=== PATIENT | male | born 1950 | race Caucasian/White ===

== ENCOUNTER 2016-07-30 15:08 | Inpatient (IN) | payer OTHER ==
[~2016-07-30] VITALS: Ht 170.2 cm; Wt 73.5 kg
[2016-07-30] VITALS (34 sets, daily range): BP systolic 51–140; BP diastolic 27–95
--- NOTE | 2016-07-30 15:20 | NUR ---
PT BIBRA FOR SOB, POSSIBLE FLUID OVERLOAD, POSSIBLE [place]. PT IN DISTRESS, ON BIPAP PLACED ON THE FIELD. PT CODED. RT AT BS, DR. CARMONA AT BS. BVM INITIATED. IV ACCESS POULTRY DRESSER. PT MEDICATED ORDERED. PT INTUBATED. OTHER ORDERS CARRIED OUT.
--- NOTE | 2016-07-30 15:20 | NUR ---
LATE ENTRY: RT NOTE PATIENT BROUGHT TO ER ON CPAP. WHILE SETTING UP TO SWITCH PATIENT TO BIPAP PATIENT LOST CONSCIOUSNESS AND I BEGAN TO SET UP FOR INTUBATION WHILE BARBIE (CELESTE) AND DR. CARMONA VENTILATED VIA AMBU BAG. ASSISTED WITH INTUBATION. PATIENT WAS ORALLY INTUBATED WITH 7.5 ETT SECURED AT 25 CM MID LIP LINE. EQUAL CHEST RISE NOTED. BILATERAL B/S NOTED. ONCE PATIENT WAS STABLE HE WAS PLACED ON VENT WITH SETTINGS PER MD ORDER. AMBU BAG AT [facility]. VENT PLUGGED INTO RED OUTLET. SUCTIONED AND LAVAGED TO OBTAIN THIN PINK SECRETIONS. ALRMS VERIFIED AND AUDIBLE. WILL CONTINUE TO MONITOR.
[2016-07-30] MEDS ORDERED: ASPIRIN 300 MG/SUPP.RECT RC ONE ×2 (15:27→15:30)
--- NOTE | 2016-07-30 15:29 | NUR ---
INITIATED CODE STEMI
[2016-07-30] MEDS ORDERED: ETOMIDATE 2 MG/ML VIAL IV ONE (15:30)
[2016-07-30] MEDS ORDERED: SUCCINYLCHOLINE CHLORIDE 20 MG/ML VIAL IV ONE (15:30)
--- NOTE | 2016-07-30 15:30 | NUR ---
SAFETY MEASURES INITIATED. VSS. PT STARTED ON DIPRIVAN. WILL CLOSELY MONITOR.
[2016-07-30] MEDS ORDERED: PROPOFOL 100 ML IV ONE ×2 (15:32→16:00)
[2016-07-30] MEDS ORDERED: IV SET PRIMARY PUMP SET 1 EA INFUS.SET MC ONE ×6 (15:32→21:47)
--- NOTE | 2016-07-30 15:32 | NUR ---
CALLED [facility]ROW[facility]S SPOKE WITH LUAN, FAXED HIM FACESHEET AND 12-LEAD EKG.
--- NOTE | 2016-07-30 15:46 | NUR ---
ST MORROW'S DROP WIRE STRINGER ON THE PHONE WITH DR CARMONA.
[2016-07-30 15:53] LABS: BASOPHILS # (AUTO) 0.5 /CMM (0.0-0.2); BASOPHILS % (AUTO) 3.1 % (0.0-2.0); EOSINOPHILS # (AUTO) 0.4 /CMM (0.0-0.7); EOSINOPHILS % (AUTO) 2.4 % (0.0-6.0); HEMATOCRIT 38 % (39-51); HEMOGLOBIN 12.6 g/dL (13.5-17.5); LYMPHOCYTES # (AUTO) 2.5 /CMM (0.8-4.8); LYMPHOCYTES % (AUTO) 15.4 % (20.0-44.0); MEAN CORPUSCULAR HEMOGLOBIN 31 PG (26.0-33.0); MEAN CORPUSCULAR HGB CONC 33 g/dl (31.0-36.0); MEAN CORPUSCULAR VOLUME 93 fL (80-96); MONOCYTES # (AUTO) 0.7 /CMM (0.1-1.30); MONOCYTES % (AUTO) 4.3 % (2.0-12.0); NEUTROPHILS # (AUTO) 12.3 /CMM (1.8-8.9); NEUTROPHILS % (AUTO) 74.8 % (43.0-81.0); PLATELET COUNT (AUTO) 256 /CMM (150-450); RDW COEFFICIENT OF VARIATION 14.4 (11.5-15.0); RED BLOOD CELL COUNT(AUTO) 4.11 MIL/uL (4.5-6.0); WHITE BLOOD COUNT (AUTO) 16.4 K/uL (4.3-11.0)
[2016-07-30] MEDS ORDERED: PROPOFOL 200 MG/20 ML VIAL IV ONE (16:00)
[2016-07-30] MEDS ORDERED: FUROSEMIDE 40 MG/4 ML VIAL IV ONE (16:00)
--- NOTE | 2016-07-30 16:01 | NUR ---
PATIENT ASSIGNED TO 253
[2016-07-30 16:08] LABS: CALCIUM, SERUM 7.9 mg/dL (8.5-10.1); CARBON DIOXIDE 14 mmol/L (21-32); CHLORIDE 97 mmol/L (98-107); CREATININE 3.5 mg/dL (0.6-1.3); GFR 18 mL/min (>60); GLUCOSE 220 mg/dL (74-106); INR 1.13 (0.87-1.13); POTASSIUM 3.5 mmol/L (3.5-5.1); PROTHROMBIN TIME 11.9 SECS (9.5-12.7); SODIUM SERUM 130 mmol/L (136-145); UREA NITROGEN, BLOOD 67 mg/dL (7-18)
[2016-07-30] MEDS ORDERED: CEFTRIAXONE 1GM BAG (ER ONLY) 50 ML IV ONE (16:13)
[2016-07-30] MEDS ORDERED: FUROSEMIDE 40 MG/4 ML VIAL ONE (16:13)
[2016-07-30 16:20] LABS: ALANINE AMINOTRANSFERASE 65 U/L (12-78); ALBUMIN 2.2 g/dL (3.4-5.0); ALKALINE PHOSPHATASE 122 U/L (46-116); ASPARTATE AMINOTRANSFERASE 130 U/L (15-37); BILIRUBIN,DIRECT 0.1 mg/dL (0.0-0.2); BILIRUBIN,TOTAL 0.4 mg/dL (0.2-1.0); TOTAL PROTEIN, SERUM 7.1 g/dL (6.4-8.2)
[2016-07-30 16:21] LABS: ABG BASE EXCESS -16.3 mmol/L; ABG OXYGEN SATURATION 96.1 % (92.0-98.5); ABG PCO2 29.9 mmHg (35.0-45.0); ABG PH 7.175 (7.350-7.450); ABG PO2 108.8 mmHg (75.0-100.0); ABG TOTAL HEMOGLOBIN 12.3 G/dL (13.5-18.0); AaDO2 574.3 mmHg; COHb 0.4 % (0.5-1.5); MetHb 0.4 % (0.0-1.5); O2Hb 95.3 % (94.0-97.0); PEEP,BG 0 cm H2O; SITE, ABG Right Radial; VT, ABG 550 mL
[2016-07-30 16:27] LABS: TROPONIN I 4.037 ng/mL (0.00-0.056)
[2016-07-30 16:30] LABS: LACTIC ACID 6.8 mmol/L (0.4-2.0)
[2016-07-30] MEDS ORDERED: AZITHROMYCIN 500 MG in IV D5W 250 ML IV ONE (16:30)
[2016-07-30] MEDS ORDERED: CEFTRIAXONE 1 G in IV D5W 50 ML IV ONE (16:30)
--- NOTE | 2016-07-30 16:38 | NUR ---
REPAGED EDGER RUNNER AT [facility]
--- NOTE | 2016-07-30 16:40 | NUR ---
PATIENT ACCEPTED BY DR BUCK STOKES
[2016-07-30 16:43] LABS: B-TYPE NATRIURETIC PEPTIDE 42947 PG/ML (0-125)
--- NOTE | 2016-07-30 16:55 | NUR ---
DR CARMONA ON THE PHONE WITH DR WHITE
--- NOTE | 2016-07-30 16:59 | NUR ---
DR CARMONA ON THE PHONE WITH DR VILLASEÑOR
--- NOTE | 2016-07-30 17:17 | NUR ---
DR. WHITE AT FOR EVAL.
--- NOTE | 2016-07-30 17:17 | NUR ---
REPORT GIVEN TO STEVEN LARIOS FOR ICU ROOM 253
--- NOTE | 2016-07-30 17:43 | NUR ---
RT NOTE: ASSISTED WITH TRANSPORTING PATIENT TO ICU WITH NO PROBLEMS AND PLACED BACK ON VENT WITH PRIOR SETTING. AMBU BAG AT [facility]. VENT PLUGGED INTO RED OUTLET. WILL CONTINUE TO MONITOR.
[2016-07-30] MEDS ORDERED: BUMETANIDE INJ 4 MG in IV D5W 24 ML IV ONE (18:00)
[2016-07-30] MEDS ORDERED: LEVOFLOXACIN 750 MG /D5W 150ML 150 ML IV SCH (18:00)
--- NOTE | 2016-07-30 18:10 | NUR ---
PHARMACY SALES ASSISTANT RECEIVED PATIENT FROM THE ER. 4 PERSON ASSIST TRANSFER TO THE BED. ORALLY INTUBATED ON 85% FIO2. VENT SETTINGS REVIEWED AND VERIFIED. PER ER NURSE PATIENT IS ON 40 MCG DIPRIVAN DUE TO TACHYPNEA. RECTAL TUBE INSERTED DUE TO DIARRHEA. SINUS TACH ON MONITOR. HYPOTENSIVE. URINE OUTPUT MONITORED. INTACT SKIN AT THIS TIME. WILL CONTINUE TO MONITOR AND PROVIDE CARE.
--- NOTE | 2016-07-30 18:14 | NUR ---
HOGSHEAD LINER RECEIVED PATIENT FROM THE OR. PATIENT ORALLY INTUBATED. VENT SETTINGS REVIEWED AND VERIFIED. SINUS TACH ON MONITOR. URINE OUTPUT MONITORED. SEDATED ON DIPRIVAN 40MCG. RECTAL TUBE PLACED DUE TO DIARRHEA. STOOL SAMPLE COLLECTED. RESTRAINTS ARE ON FOR SAFETY. TURNED REPOSITIONED FOR COMFORT AND WOUND PREVENTION. WILL CONTINUE TO MONITOR AND PROVIDE CARE.
[2016-07-30] MEDS ORDERED: HEPARIN SODIUM, PORCINE 5000 UNITS/1 ML VIAL IV ONE ×2 (18:30→19:00)
[2016-07-30] MEDS ORDERED: NITROPRUSSIDE SODIUM 50 MG in IV D5W 250 ML IV PRN (19:00)
[2016-07-30] MEDS ORDERED: SUCCINYLCHOLINE CHLORIDE 20 MG/ML VIAL ONE (19:00)
[2016-07-30] MEDS ORDERED: ETOMIDATE 2 MG/ML VIAL ONE (19:00)
[2016-07-30] MEDS ORDERED: IV NS 0.9% 250 ML IV ONE ×3 (19:13→20:54)
--- NOTE | 2016-07-30 19:35 | NUR ---
APPLE TURNER PATIENT IS HYPOTENSIVE. UNABLE TO REACH FAMILY AT THIS TIME FOR CONSENT. RN INFORMED THE ADVENTURE CHALLENGE INSTRUCTOR AND THE PRIMARY MD. BOTH MDS AGREED THAT PATIENT NEED AN EMERGENCY CONSENT FOR PICC LINE INSERTION DUE TO HEMODYNAMIC INSTABILITY. CONSENT SIGNED BY PRIMARY MD. PICC LINE NURSE ON THE WAY TO THE HOSPITAL.
[2016-07-30] MEDS: HEPARIN INFUSION/D5W 500 ML IV PRN (19:36)
[2016-07-30] MEDS: IPRATROPIUM NEB FS 0.5 MG/2.5 ML AMPUL.NEB NEB PRN (19:46)
[2016-07-30] MEDS: ALBUTEROL FS 2.5 MG/3 ML VIAL.NEB NEB SCH ×2 (19:47→23:09)
[2016-07-30] MEDS ORDERED: FEE PK DOSING 1 MIN EA MC ONE (20:04)
[2016-07-30] MEDS: PANTOPRAZOLE 40 MG VIAL IV SCH (20:08)
[2016-07-30] MEDS: PHENYLEPHRINE 40 MG in IV D5W 250 ML IV PRN ×2 (20:09→23:04)
[2016-07-30] MEDS: PROPOFOL 100 ML IV PRN (20:10)
[2016-07-30] MEDS ORDERED: SECONDARY IV SET 1 EA INFUS.SET MC ONE (20:54)
[2016-07-30] MEDS ORDERED: EPINEPHRINE (1:10,000) SYRINGE 1 MG/10 ML DISP.SYRIN IVP ONE (21:00)
[2016-07-30] MEDS: PIPERACILLIN /TAZOBACTAM 2.25 G in IV D5W 50 ML IV SCH (21:01)
[2016-07-30] MEDS: IV NS 0.9% 250 ML IV PRN (21:05)
[2016-07-30] MEDS ORDERED: IV NS 0.9% 500 ML IV ONE ×2 (21:22→21:30)
[2016-07-30] MEDS: LEVOFLOXACIN 750 MG /D5W 150ML 750 MG in PREMIX 1 EA IV SCH (21:31)
--- NOTE | 2016-07-30 21:31 | NUR ---
received pt from day shift, s/p cardiac arrest, sedated on diprivan at 30mcg, ST, receiving lorena at 300mcg, heparin drip at 1000units, on the vent, intubated, restraints on, f/c low output, rectal tube diarrhea, v/s stable, no pain, pt turned and repositioned.
--- NOTE | 2016-07-30 21:44 | NUR ---
PT RECEIVED INTUBATED WITH 7.5 ETT SECURED AT 24CM AT THE LIP. NO RESP DISTRESS NOTED PT TOLERATING VENT SETTINGS. VENT ALARMS SET AND AUDIBLE. AMBU BAG AT BEDSIDE. VENT PLUGGED INTO RED OUTLET. Addendum: 07/30/16 at 2146 by ROCHELLE MORALES RT Amended: Links added.
[2016-07-30] MEDS: VANCOMYCIN 0.75 GM in IV D5W 250 ML IV SCH (21:57)
[2016-07-30] MEDS ORDERED: PHENYLEPHRINE 10 MG/ML VIAL ONE (22:58)
[2016-07-31] VITALS (106 sets, daily range): BP systolic 82–141; BP diastolic 48–99
--- NOTE | 2016-07-31 00:28 | NUR ---
pt is resting in the bed, sedated on diprivan at 30mcg, receiving lorena at 280mcg and heparin drip at 1000units, v/s stable, no pain, pt turned and repositioned q2hrs.
[2016-07-31] MEDS ORDERED: PHENYLEPHRINE 10 MG/ML VIAL ONE ×2 (01:04→02:43)
[2016-07-31] MEDS: PIPERACILLIN /TAZOBACTAM 2.25 G in IV D5W 50 ML IV SCH ×4 (01:05→20:25)
[2016-07-31] MEDS: PHENYLEPHRINE 40 MG in IV D5W 250 ML IV PRN ×3 (01:13→06:21)
[2016-07-31] MEDS: PROPOFOL 100 ML IV PRN ×4 (01:37→21:06)
--- NOTE | 2016-07-31 04:31 | NUR ---
pt is resting in the bed, sedated on diprivan at 30mcg, receiving lorena at 260mcg, heparin held for one hour and reduced to 800units per protocol (PTT 98), low urine output, v/s stable, no pain, pt cleaned, changed and repostioned q2hrs.
[2016-07-31 04:51] LABS: BASOPHILS % (AUTO) 0.1 % (0.0-2.0); EOSINOPHILS # (AUTO) 0.1 /CMM (0.0-0.7); EOSINOPHILS % (AUTO) 0.4 % (0.0-6.0); HEMATOCRIT 32 % (39-51); HEMOGLOBIN 10.8 g/dL (13.5-17.5); LYMPHOCYTES # (AUTO) 1.1 /CMM (0.8-4.8); LYMPHOCYTES % (AUTO) 4.8 % (20.0-44.0); MEAN CORPUSCULAR HEMOGLOBIN 31 PG (26.0-33.0); MEAN CORPUSCULAR HGB CONC 33 g/dl (31.0-36.0); MEAN CORPUSCULAR VOLUME 93 fL (80-96); MONOCYTES # (AUTO) 0.8 /CMM (0.1-1.30); MONOCYTES % (AUTO) 3.8 % (2.0-12.0); NEUTROPHILS # (AUTO) 20.4 /CMM (1.8-8.9); NEUTROPHILS % (AUTO) 90.9 % (43.0-81.0); PLATELET COUNT (AUTO) 272 /CMM (150-450); RDW COEFFICIENT OF VARIATION 15.6 (11.5-15.0); RED BLOOD CELL COUNT(AUTO) 3.47 MIL/uL (4.5-6.0); WHITE BLOOD COUNT (AUTO) 22.5 K/uL (4.3-11.0)
[2016-07-31 05:08] LABS: ALBUMIN 1.7 g/dL (3.4-5.0); BILIRUBIN,TOTAL 0.3 mg/dL (0.2-1.0); CALCIUM, SERUM 6.7 mg/dL (8.5-10.1); CREATININE 4.5 mg/dL (0.6-1.3); MAGNESIUM 2.4 mg/dL (1.8-2.4); PHOSPHORUS 3.5 mg/dL (2.5-4.9); POTASSIUM 3.4 mmol/L (3.5-5.1); TOTAL PROTEIN, SERUM 5.7 g/dL (6.4-8.2)
[2016-07-31 05:18] LABS: LACTIC ACID 2.9 mmol/L (0.4-2.0); TROPONIN I 13.145 ng/mL (0.00-0.056)
[2016-07-31 05:38] LABS: BAND % (MANUAL) 20 % (0.0-5.0); EOSINOPHILS % (MANUAL) 1 % (0-4); LYMPHOCYTES % (MANUAL) 9 % (16-48); MONOCYTES % (MANUAL) 4 % (0-11.0); NEUTROPHILS % (MANUAL) 66 (42-76); PLATELET ESTIMATE ADEQUATE
--- NOTE | 2016-07-31 08:00 | NUR ---
NETWORK OPERATIONS ANALYST; ASSESSMENT RECEIVED PT VENTED VIA ETT, SEE FLOW SHEET FOR VENT SETTINGS. PT SEDATED ON DIPRIVAN DRIP AT 30MCG/MIN/KG. DECREASED RATE TO 10MCG. PT IS KIMBERLY TO OPEN EYES AND FOLLOW COMMANDS. NOTED LAURA TOES,(MORE ON THE LEFT), PURPLE IN COLOR. UNABLE TO PALPATE PEDAL PULSES. DOPPLER DONE KIMBERLY TO HEAR PULSES TO LAURA POSTERIOR TIBIAL PULSE, STRONGER TO ON THE LEFT THEN RIGHT. PT ON NEOSYNEPRINE DRIP AT 260MCG/MIN, INFUSING INTO RIGHT UPPER PICC LINE. SCHAFER CATH INTACT. DRAINING YELLOW CLEAR URINE. PT ON HEPARIN DRIP PER PROTOCOL. NO S/S OF BLEEDING NOTE. LAURA WRIST RESTRAINS ON FOR PT SAFETY. WILL CONTINUE WITH POC/
[2016-07-31] MEDS: ALBUTEROL FS 2.5 MG/3 ML VIAL.NEB NEB SCH ×3 (08:46→23:18)
[2016-07-31] MEDS: PHENYLEPHRINE 80 MG in IV D5W 250 ML IV PRN ×3 (08:54→17:17)
[2016-07-31] MEDS: ASPIRIN 325 MG TABLET NG SCH (09:00)
[2016-07-31] MEDS ORDERED: ASPIRIN 300 MG/SUPP.RECT RC SCH (09:00)
--- NOTE | 2016-07-31 09:00 | NUR ---
COORDINATOR OF HEALTH SERVICES; PRIMARY DR. JANE AT BEDSIDE UPDATE WAS GIVEN. DISCUSSED REGARDING PT ELEVATED TROPONIN AND ELEVATED BUN AND CREAT. NO NEW ORDERS GIVEN
--- NOTE | 2016-07-31 09:06 | NUR ---
LEARNING OPERATIONS SPECIALIST; HEPARIN aPTT RESULT OF 52. NO CHANGES TO HEPARIN DRIP PER THERAPEUTIC RANGE AND PER PROTOCOL. WILL CONTINUE TO MONITOR CLOSELY FOR ANY S/S OF BLEEDING.
--- NOTE | 2016-07-31 09:30 | NUR ---
TV HOST; GI ABLE TO INSERT NG TUBE TO LEFT NARE. PT TOLERATED WELL. POSITIVE FOR AUSCULTATION AND ASPIRATION. VERIFIED WITH Rubia MCMANUS RN.
[2016-07-31 10:03] LABS: ABG BASE EXCESS -10.4 mmol/L; ABG OXYGEN SATURATION 92.6 % (92.0-98.5); ABG PCO2 20.6 mmHg (35.0-45.0); ABG PH 7.399 (7.350-7.450); ABG PO2 63.6 mmHg (75.0-100.0); ABG TOTAL HEMOGLOBIN 11.2 G/dL (13.5-18.0); AaDO2 197.9 mmHg; COHb 0.3 % (0.5-1.5); MetHb 0.6 % (0.0-1.5); O2Hb 91.8 % (94.0-97.0); PEEP,BG 5 cm H2O; SITE, ABG Right Radial; VT, ABG 600 mL
--- NOTE | 2016-07-31 10:30 | NUR ---
OTR REFRIGERATED CDL TRUCK DRIVER; PULMONARY DR. WHITE AT BEDSIDE UPDATE WAS GIVEN. RESULTS OF ABG REVIEWED. ORDERS TO PLACE PT ON 60% FIO2.
--- NOTE | 2016-07-31 15:36 | NUR ---
SURGEON CHIEF; RENAL DR. THOMAS AT BEDSIDE UPDATE WAS GIVEN. DISCUSSED REGARDING LOW URINE OUT PUT. NO NEW ORDERS GIVEN AT THIS TIME.
[2016-07-31] MEDS: LACTOBACILLUS RHAMNOSUS GG 1 EACH CAP.SPRINK PO SCH (17:09)
[2016-07-31] MEDS ORDERED: FUROSEMIDE 40 MG/4 ML VIAL IV SCH (18:00)
[2016-07-31] MEDS ORDERED: IV SET PRIMARY PUMP SET 1 EA INFUS.SET MC ONE ×2 (18:01→20:52)
[2016-07-31] MEDS: NOREPINEPHRINE 16 MG in IV D5W 500 ML IV PRN (18:06)
[2016-07-31] MEDS: HEPARIN INFUSION/D5W 500 ML IV PRN (18:07)
--- NOTE | 2016-07-31 18:10 | NUR ---
SWIMMING PROFESSOR; CARDIO Yenifer IRIZARRY AT BEDSIDE UPDATE WAS GIVEN DISCUSSED REGARDING ELEVATED TROP. DISCUSSED REGARDING UNABLE TO PALPATE PEDAL PULSES, BUT ABLE TO OBTAIN DOPPLER. NEW ORDERS GIVEN TO WEAN OFF OF TATYANA-SYNEPHRINE AND START LEVOPHED. DISCUSSED ELEVATED HR, BUT STILL WOULD LIKE TO ATTEMPT TO WEAN OFF TATYANA AND JUST KEEP LEVO. WILL TITRATE PRESSORS ACCORDINGLY TO BP
[2016-07-31] MEDS: PANTOPRAZOLE 40 MG VIAL IV SCH (18:48)
[2016-07-31] MEDS ORDERED: POTASSIUM CHLORIDE 10 MEQ/50 ML PREMIXED IVPB FOR PERIPHERAL LINE IV ONE (20:00)
[2016-07-31] MEDS ORDERED: PIPERACILLIN /TAZOBACTAM 2.25 G in IV D5W 50 ML IV SCH (20:00)
--- NOTE | 2016-07-31 20:12 | NUR ---
received pt from day shift, sedated on diprivan at 40mcg, ST, receiving olrena at 160mcg, levo at 10mcg and heparin drip at 800units, on the vent, lungs congested, no edema, f/c low output, MD aware, NG clamped, rectal tube diarrhea, v/s stable, no pain, pt turned and repositioned.
[2016-07-31] MEDS: POTASSIUM CL. PREMIX PERIPHER. 50 ML IV SCH ×2 (20:39→21:27)
[2016-07-31] MEDS ORDERED: IV NS 0.9% 250 ML IV ONE (20:44)
[2016-07-31] MEDS: VANCOMYCIN 0.75 GM in IV D5W 250 ML IV SCH (21:27)
[2016-08-01] VITALS (84 sets, daily range): BP systolic 60–124; BP diastolic 41–77
--- NOTE | 2016-08-01 00:13 | NUR ---
pt is resting in the bed, off of lorena, v/s stable, no pain, pt turned and repositioned q2hrs.
[2016-08-01] MEDS: PROPOFOL 100 ML IV PRN ×3 (00:20→10:01)
[2016-08-01] MEDS: PIPERACILLIN /TAZOBACTAM 2.25 G in IV D5W 50 ML IV SCH ×4 (01:37→20:12)
--- NOTE | 2016-08-01 04:19 | NUR ---
pt is resting in the bed,sedated on Diprivan at 45mcg, no acute distress overnight, ST, fio2 50%, sat well, receiving levo at 25mcg and heparin drip at 800units, good urine output, v/s stable, no pain, pt cleaned, changed and repositioned q2hrs.
[2016-08-01 05:02] LABS: BASOPHILS % (AUTO) 0.1 % (0.0-2.0); EOSINOPHILS # (AUTO) 0.9 /CMM (0.0-0.7); EOSINOPHILS % (AUTO) 3.6 % (0.0-6.0); HEMATOCRIT 34 % (39-51); HEMOGLOBIN 11.5 g/dL (13.5-17.5); LYMPHOCYTES % (AUTO) 8.4 % (20.0-44.0); MEAN CORPUSCULAR HEMOGLOBIN 31 PG (26.0-33.0); MEAN CORPUSCULAR HGB CONC 34 g/dl (31.0-36.0); MEAN CORPUSCULAR VOLUME 91 fL (80-96); NEUTROPHILS # (AUTO) 20.2 /CMM (1.8-8.9); NEUTROPHILS % (AUTO) 83.9 % (43.0-81.0); PLATELET COUNT (AUTO) 302 /CMM (150-450); WHITE BLOOD COUNT (AUTO) 24.1 K/uL (4.3-11.0)
[2016-08-01] MEDS: NOREPINEPHRINE 16 MG in IV D5W 500 ML IV PRN ×2 (05:11→13:32)
[2016-08-01 05:19] LABS: ALBUMIN 1.6 g/dL (3.4-5.0); BILIRUBIN,TOTAL 0.5 mg/dL (0.2-1.0); CALCIUM, SERUM 6.5 mg/dL (8.5-10.1); POTASSIUM 3.6 mmol/L (3.5-5.1); TOTAL PROTEIN, SERUM 5.8 g/dL (6.4-8.2)
[2016-08-01 05:31] LABS: BAND % (MANUAL) 12 % (0.0-5.0); LYMPHOCYTES % (MANUAL) 8 % (16-48); MONOCYTES % (MANUAL) 16 % (0-11.0); NEUTROPHILS % (MANUAL) 64 (42-76); PLATELET ESTIMATE ADEQUATE
--- NOTE | 2016-08-01 07:15 | NUR ---
REFRIGERATION MECHANIC NOTES RECEIVED PATIENT SEDATED , REPOSIVE TO PAIN STIMULI , NOT IN ACUTE DISTRESS , RESPIRATIONS EVEN AND UNLABORED , SPO2 OF 100% VIA MECHANICAL VENTILATOR SETTINGS ORDERED , ETT 7.5 / [address] , ST 105 ON BEDSIDE MONITOR , L NARE NGT IN PLACE VERIFIED VIA AUSCULTATION NOTED WITH GURGLING SOUND AROUND THE STOMACH , FC DRAINING VIA GRAVITY WITH CLEAR YELLOW URINE , FLEXI SEAL IN PLACE DRAINING WITH BROWNISH LIQUID STOOL , [place] PICC LINE WITH DIPRIVAN @ 45MCG/MIN , HEPARIN DRIP @ 800UNITS , LEVOPHED @ 25MCG/MIN INFUSING WELL , IV OF R AC @ 16 AND L WRIST @ 20 PATENT AND INTACT SL , WEAK PULSES @ POSTERIOR TIBIAL AND DORSALIS PEDIS NOTED WITH COOL EXTREMITIES AND CYANOSIS , ALL NEEDS ATTENDED , BED ON LOW AND LOCKED POSITION , SIDE RAILS X2 , CALL LIGHT WITHIN REACH , HOB @ 35 , WILL CONTINUE TO MONITOR
--- NOTE | 2016-08-01 08:00 | NUR ---
PATTERNMAKER APPRENTICE METAL NOTES PATIENT ON SEDATION VACATION @ 0730 , AWAKE , ABLE TO FOLLOWS COMMANDS , AGITATED , HR OF 120'S , NOTED WITH DISCOMFORT , DIPRIVAN @ 45MCG/MIN RESUMED , WILL CONTINUE TO MONITOR
[2016-08-01] MEDS: ALBUTEROL FS 2.5 MG/3 ML VIAL.NEB NEB SCH ×2 (08:04→15:05)
[2016-08-01] MEDS: IPRATROPIUM NEB FS 0.5 MG/2.5 ML AMPUL.NEB NEB PRN (08:04)
--- NOTE | 2016-08-01 08:04 | NUR ---
RT PT RECEIVED ORALLY INTUBATED WITH A 7.5 ETT SECURED AT 24CM AT THE LIP LINE. PT IS CURRENTLY SEDATED AT THIS TIME. PT PLACED ON THE VENT WITH NOTED SETTINGS. VENT ALARMS ARE SET AND AUDIBLE WITH BVM BY BEDSIDE. DIABETES NURSE CUFF PRESSURE NOTED. VENT IS PLUGGED INTO RED OUTLET. SX SMALL THICK YELLOW SECRETIONS. NO RESPIRATORY DISTRESS NOTED AT THIS TIME, WILL CONTINUE TO MONITOR. Addendum: 08/01/16 at 0946 by WILIAN BROWN RT Amended: Links added.
[2016-08-01 08:42] LABS: ABG OXYGEN SATURATION 97.6 % (92.0-98.5); ABG PCO2 20.9 mmHg (35.0-45.0); ABG PH 7.428 (7.350-7.450); ABG PO2 138.6 mmHg (75.0-100.0); ABG TOTAL HEMOGLOBIN 10.9 G/dL (13.5-18.0); AaDO2 194.4 mmHg; COHb 0.3 % (0.5-1.5); MetHb 0.9 % (0.0-1.5); O2Hb 96.4 % (94.0-97.0); PEEP,BG 5 cm H2O; SITE, ABG Right Radial; VT, ABG 600 mL
[2016-08-01] MEDS: ASPIRIN 325 MG TABLET NG SCH (09:05)
[2016-08-01] MEDS: LACTOBACILLUS RHAMNOSUS GG 1 EACH CAP.SPRINK PO SCH ×2 (09:06→16:00)
[2016-08-01] MEDS ORDERED: IV SET PRIMARY PUMP SET 1 EA INFUS.SET MC ONE (09:14)
--- NOTE | 2016-08-01 09:20 | NUR ---
MEDICAL SCREENER NOTES DR JANE AT BEDSIDE , NOTIFIED PT IS OFF SEDATION , NEUROLOGICALLY INTACT , ABLE TO FOLLOWS COMMANDS , ST 105 , ON LEVOPHED @ 25MCG/MIN WITH BP OF 110/55 , NO DISTRESS , URINE OUTPUT OF 1200 FOR 12 HOURS NOTED WITH CLEAR YELLOW URINE , FLEXI SEAL DRAINING VIA GRAVITY WITH BROWNISH LIQUID STOOL , HEPARIN DRIP @ 800 UNITS / HR , DISCUSSED AM LABS , CHEST XRAY , NOTIFIED PT HAS WEAK PULSES @ POSTERIOR TIBIAL AND DORSALIS PEDIS WITH CYANOSIS NOTED , MD AWARE .
--- NOTE | 2016-08-01 09:30 | NUR ---
VIDEO SYSTEMS ENGINEER NOTES NOTIFIED DR JANE REGARDING Occluded right dorsalis pedis artery , AWAITING FOR CALL BACK
[2016-08-01] MEDS ORDERED: MIDAZOLAM HCL 100 MG in IV NS 0.9% 80 ML IV PRN (10:30)
--- NOTE | 2016-08-01 10:45 | NUR ---
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 MD AWARE
--- NOTE | 2016-08-01 10:58 | NUR ---
AUTO BODY MECHANIC APPRENTICE NOTES DR BARBOZA AT BEDSIDE , NOTIFIED PT ON LEVOPHED @ 25MCG/MIN , HEPARIN @ 800U/HR , DIPRIVAN @ 45MCG/HR , TOLERATING CURRENT VENTILATOR SETTINGS WITH SPO2 OF 100% , DISCUSSED AM LABS , CHEST XRAY AND ABG , FIO2 CHANGED TO 40% O2 OF 138.6 , PER MD CHANGE RATE TO AC 16 , AND DISCONTINUE DIPRIVAN AND CHANGE SEDATION TO VERSED . PT ABLE TO FOLLOWS COMMANDS OFF SEDATION , MD AWARE
[2016-08-01] MEDS ORDERED: SET PCA INFUSE SET 1 EA INFUS.SET MC ONE (11:51)
[2016-08-01] MEDS: ALBUMIN 25% 25 GM in PREMIX 1 EA IV SCH ×3 (12:23→22:03)
[2016-08-01] MEDS ORDERED: ACETYLCYSTEINE 10% SOLN 400 MG/4 ML VIAL NEB SCH (13:30)
--- NOTE | 2016-08-01 13:37 | NUR ---
SENIOR CLINICAL SAS PROGRAMMER NOTES VENT SETTINGS CHANGED TO AC 16 , TV 600 , FIO2 30% AND PEEP OF [address] BARBOZA ORDERS
--- NOTE | 2016-08-01 17:26 | NUR ---
SOUND CUTTER NOTES DR JEFFERS AT BEDSIDE , NOTIFIED PT ON LEVOPHED @ 18MGC/MIN WITH BP OF 105/59 , VERSED @ 2MG/HR , HEPARIN @ 800UNITS / HR , ST 103 ON THE MONITIR , AFEBRILE , DISCUSSED LABS , CHEST XRAY , AND Occluded right dorsalis pedis artery , , FOLLOWED UP TROPONIN CYCLE , LAST TROPONIN OF 13.145 YESTERDAY , AWARE
--- NOTE | 2016-08-01 18:00 | NUR ---
HEAVY DUTY TRUCK MECHANIC NOTES PTT OF 195 , WILL HOLD INFUSION FOR 60 MINUTES AND DECREASE RATE BY 200 UNITS/HR , WILL START INFUSING OF HEPARIN @ 600UNITS /HR PER PROTOCOL ,
[2016-08-01] MEDS: LEVOFLOXACIN 750 MG /D5W 150ML 750 MG in PREMIX 1 EA IV SCH (18:03)
--- NOTE | 2016-08-01 18:30 | NUR ---
FURNACE FITTER NOTES SPOKE WITH DR JANE , NOTIFIED PT HAS OCCLUSION RIGHT DORSALIS PEDIS , PER MD CALL DR ARTHUR FOR PHYSICIAN CONSULT, Addendum: 08/01/16 at 1915 by GRACIELA JAY RN DR JANE ORDERED TO DC VANCOMYCIN AND LEVAQUIN IV
--- NOTE | 2016-08-01 19:16 | NUR ---
COMMERCIAL LEASING AGENT NOTES PATIENT STABLE , SEDATED , NOT IN ACUTE DISTRESS , RESPIRATIONS EVEN AND UNLABORED , SPO2 OF 100% VIA MECHANICAL VENTILATOR SETTINGS ORDERED , ETT 7.5 / [address] , ST 104 ON BEDSIDE MONITOR , L NARE NGT IN PLACE , FC DRAINING VIA GRAVITY WITH CLEAR YELLOW URINE , FLEXI SEAL IN PLACE DRAINING WITH BROWNISH LIQUID STOOL , [place] PICC LINE WITH VERSED @ 2MG/HR , HEPARIN DRIP RESTARTED @ 600UNITS , LEVOPHED @ 18MCG/MIN INFUSING WELL , IV OF R AC @ 16 AND L WRIST @ 20 , R FA # 20 PATENT AND INTACT SL , WEAK PULSES @ POSTERIOR TIBIAL AND DORSALIS PEDIS NOTED WITH COOL EXTREMITIES AND CYANOSIS , ALL NEEDS ATTENDED , BED ON LOW AND LOCKED POSITION , SIDE RAILS X2 , CALL LIGHT WITHIN REACH , HOB @ 35 , REPORT GIVEN TO MARIE FOR CONTINUITY OF CARE
--- NOTE | 2016-08-01 19:22 | NUR ---
RN:ICU: PT RECEIVED IN BED ON VENT WITH BILATERAL SOFT WRIST RESTRAINTS IN PLACE FOR PT SAFETY. PT CURRENTLY RECEIVING VERSED AT 2MG/HR. PER DAYSHIFT PMD AWARE OF ARTERIAL OCCLUSION OF RIGHT DORSALIS PEDIS ARTERY AND THAT A MESSAGE HAS BEEN LEFT FOR DR ARTHUR FOR CONSULT. PT RECEIVING LEVOPHED AT 17MCG/MIN WILL TITRATE ACCORDING TO MD ORDER. PTT AT 1800 WAS 195, PER HEPARIN PROTOCOL FOR [facility] HEPARIN STOPPED FOR 60 MINS AND RESUMED AT 200 UNITS/HR LESS THAN PREVIOUS INFUSION RATE. HEPARIN GTT CURRENTLY RUNNING AT 600 UNITS/HR. NO BLEEDING NOTED. ALL IV SITES INTACT. NO ACUTE DISTRESS. WILL RECHECK PTT AT 0000 PER PROTOCOL. VSS. WILL CONTINUE TO MONITOR CLOSELY.
--- NOTE | 2016-08-01 19:37 | NUR ---
PT RECEIVED VIA ETT SECURED AT 24CM AT THE LIP LINE. PT PLACED ON [facility] VENT WITH NOTED SETTINGS CHARTED. VENT ALARMS ARE SET AND AUDIBLE AND AMBU BAG BEDSIDE. INSURANCE CLAIMS SUPERVISOR CUFF PRESSURE NOTED. VENT IS PLUGGED INTO RED OUTLET. SX SMALL THICK YELLOW SECRETIONS. PT IS SEDATED AT THIS TIME. NO RESPIRATORY DISTRESS NOTED AT THIS TIME, WILL CONTINUE TO MONITOR. Addendum: 08/02/16 at 0507 by DON SILVA RT Amended: Links added.
[2016-08-01] MEDS: PANTOPRAZOLE 40 MG VIAL IV SCH (20:12)
[2016-08-01] MEDS: HEPARIN INFUSION/D5W 500 ML IV PRN (20:12)
[2016-08-02] VITALS (70 sets, daily range): BP systolic 76–178; BP diastolic 44–109
[2016-08-02] MEDS: ALBUTEROL FS 2.5 MG/3 ML VIAL.NEB NEB SCH ×4 (00:16→23:34)
--- NOTE | 2016-08-02 01:00 | NUR ---
RN;ICU: PTT 53, PER [facility] PROTOCOL NO CHANGE TO HEPARIN GTT. CONTINUE TO RUN HEPARIN AT 600 UNITS/HR. WILL RECHECK PTT AT 0600. NO BLEEDING NOTED. WILL CONTINUE TO TITRATE LEVOPHED PER PROTOCOL. DURING ADL PT IS ABLE TO RAISE BILATERAL ARMS TOWARDS ETT. PT STILL REQUIRES BILAT SOFT WRIST RESTRAINTS FOR SAFETY. VSS. WILL CONTINUE TO MONITOR CLOSELY.
[2016-08-02] MEDS: PIPERACILLIN /TAZOBACTAM 2.25 G in IV D5W 50 ML IV SCH ×3 (04:14→21:12)
[2016-08-02] MEDS: ALBUMIN 25% 25 GM in PREMIX 1 EA IV SCH (04:14)
[2016-08-02 04:40] LABS: EOSINOPHILS # (AUTO) 0.7 /CMM (0.0-0.7); EOSINOPHILS % (AUTO) 4.7 % (0.0-6.0); HEMATOCRIT 25 % (39-51); HEMOGLOBIN 8.5 g/dL (13.5-17.5); LYMPHOCYTES # (AUTO) 1.5 /CMM (0.8-4.8); LYMPHOCYTES % (AUTO) 9.4 % (20.0-44.0); MEAN CORPUSCULAR HEMOGLOBIN 31 PG (26.0-33.0); MEAN CORPUSCULAR HGB CONC 34 g/dl (31.0-36.0); MEAN CORPUSCULAR VOLUME 91 fL (80-96); MONOCYTES # (AUTO) 0.2 /CMM (0.1-1.30); MONOCYTES % (AUTO) 1.1 % (2.0-12.0); NEUTROPHILS # (AUTO) 13.3 /CMM (1.8-8.9); NEUTROPHILS % (AUTO) 84.8 % (43.0-81.0); PLATELET COUNT (AUTO) 257 /CMM (150-450); RDW COEFFICIENT OF VARIATION 14.6 (11.5-15.0); RED BLOOD CELL COUNT(AUTO) 2.77 MIL/uL (4.5-6.0); WHITE BLOOD COUNT (AUTO) 15.7 K/uL (4.3-11.0)
[2016-08-02 05:06] LABS: CALCIUM, SERUM 6.4 mg/dL (8.5-10.1); CREATININE 7.1 mg/dL (0.6-1.3); POTASSIUM 3.6 mmol/L (3.5-5.1)
[2016-08-02 06:32] LABS: BAND % (MANUAL) 5 % (0.0-5.0); EOSINOPHILS % (MANUAL) 4 % (0-4); LYMPHOCYTES % (MANUAL) 6 % (16-48); MONOCYTES % (MANUAL) 6 % (0-11.0); NEUTROPHILS % (MANUAL) 79 (42-76)
[2016-08-02 06:33] LABS: ANISOCYTOSIS 1+; PLATELET ESTIMATE ADEQUATE
--- NOTE | 2016-08-02 07:15 | NUR ---
FOXING CUTTING MACHINE OPERATOR NOTES RECEIVED PATIENT SEDATED , RESPONSIVE TO PAIN STIMULI , NOT IN ACUTE DISTRESS , RESPIRATIONS EVEN AND UNLABORED , SPO2 OF 100% VIA MECHANICAL VENTILATOR SETTINGS ORDERED , ETT 7.5 / [address] , ST 102 ON BEDSIDE MONITOR , L NARE NGT IN PLACE VERIFIED VIA AUSCULTATION NOTED WITH GURGLING SOUND AROUND THE STOMACH , FC DRAINING VIA GRAVITY WITH CLEAR YELLOW URINE , FLEXI SEAL IN PLACE DRAINING WITH BROWNISH LIQUID STOOL , [place] PICC LINE WITH , HEPARIN DRIP @ 600UNITS INFUSING WELL , LEVOPHED AND VERSED HELD , IV OF R AC @ 16 AND L WRIST @ 20 PATENT AND INTACT SL , PULSES PALPABLE @ POSTERIOR TIBIAL AND DORSALIS PEDIS NOTED VIA DOPPLER WITH WARM TOO TOUCH ,WITH GOOD CAPILLARY REFILL, ALL NEEDS ATTENDED , BED ON LOW AND LOCKED POSITION , SIDE RAILS X2 , CALL LIGHT WITHIN REACH , HOB @ 35 , WILL CONTINUE TO MONITOR
--- NOTE | 2016-08-02 07:16 | NUR ---
TAPE RECORDER MECHANIC NOTES VERSED DRIP HELD FOR SEDATION VACATION ,WILL CONTINUE TO MONITOR
--- NOTE | 2016-08-02 08:17 | NUR ---
DINING HOST NOTES DR JANE AT BEDSIDE , DISCUSSED LABS , CHEST XRAY , PT OFF LEVOPHED SINCE 0600 WITH BP OF 105/55 , VERSED DRIP HELD FOR SEDATION VACATION , PT ABLE TO FOLLOWS COMMANDS , NOTED WITH LETHARGY , TOLERATING CURRENT VENTILATOR SETTINGS ORDERED WITH SPO2 OF 100% WITH NO SIGNS OF DISTRESS , FC DRAINING WITH ADEQUATE URINE OUTPUT , AFEBRILE , ST 103 ON MONITOR , ON HEPARIN DRIP @ 600UNITS PER HOUR , R DORSALIS PEDIS IS WARM TO TOUCH WITH CAPILLARY REFILL OF MORE THAN 5 SECONDS , WITH PALPABLE WEAK PULSES VIA DOPPLER , MD AWARE ,
[2016-08-02] MEDS: ASPIRIN 325 MG TABLET NG SCH (09:22)
[2016-08-02] MEDS: LACTOBACILLUS RHAMNOSUS GG 1 EACH CAP.SPRINK PO SCH ×2 (09:22→16:38)
[2016-08-02] MEDS ORDERED: Z GUARD REMEDY 4 OZ OINT TP PRN (09:30)
--- NOTE | 2016-08-02 11:44 | NUR ---
VENEER JOINTER NOTES DR CHEN AT BEDSIDE , NOTIFIED PT OFF VERSED DRIP , ABLE TO FOLLOWS COMMANDS , LETHARGIC WITH NO SIGNS OF DISTRESS , SPO2 OF 100% VIA MECHANICAL VENTILATOR SETTINGS ORDERED , OFF LEVOPHED SINCE 0600 AM , RHONCHI LUNGS SOUND ALL THROUGHOUT LUNG YAN , FC DRAINING WELL WITH CLEAR YELLOW URINE ADEQUATE IN AMOUNT , AFEBRILE , NO WEANING TRIAL PER MD , CONTINUE CURRENT VENT SETTINGS ORDERED .
--- NOTE | 2016-08-02 12:26 | NUR ---
BUSINESS DEAN NOTES DR HUSAIN AT BEDSIDE , DISCUSSED LABS , CHEST XRAY , PT OFF LEVOPHED SINCE 0600 WITH BP OF 105/55 , VERSED DRIP HELD FOR SEDATION VACATION , PT ABLE TO FOLLOWS COMMANDS , NOTED WITH LETHARGY , TOLERATING CURRENT VENTILATOR SETTINGS ORDERED WITH SPO2 OF 100% WITH NO SIGNS OF DISTRESS , FC DRAINING WITH ADEQUATE URINE OUTPUT , AFEBRILE , ST 103 ON MONITOR , ON HEPARIN DRIP @ 600UNITS PER HOUR , AWARE
[2016-08-02] MEDS: LORAZEPAM INJ 2 MG/ML VIAL IV PRN ×2 (14:02→19:02)
--- NOTE | 2016-08-02 19:01 | NUR ---
AIRCRAFT ORDNANCE SYSTEMS MECHANIC NOTES PT HR OF 130 , WITH SPO2 OF 95% VIA MECHANICAL VENT SETTINGS ORDERED , RR OF 35 , TACHYPNEIC , BP OF 166/96 ,ATIVAN 0.5MG GIVEN PRN ORDERED , WILL CONTINUE TO MONITOR
--- NOTE | 2016-08-02 20:01 | NUR ---
PRESS SUPERVISOR. IITIAL ASSESSMENT. RECEIVED THE PT REST ON THE BED. ORALLY INTUBATED, LETHARGIC. ETT 7.5CMS, LIP 25CM,AC 16,TV 600,FIO2 30%, PEEP5. SAT 98%. NO ACUTE DISTRESS NOTED. CONSUMER MARKETING ANALYST SHOWING S TACH. IV RT UPPER ARM PICC LINE HEPARIN 600UNIT HOB ELEVATED. LT NARE NGT. CLAMPED. NPO. FC PATENT. LAURA SOFT WRIST RESTRAINT CHECKED AND RELEASED. NO INJURY OR REDNESS NOTED. TURN AND REPOSITION Q2H. WILL CONTINUE TO MONITOR VITALS.
[2016-08-02] MEDS ORDERED: IV SET PRIMARY PUMP SET 1 EA INFUS.SET MC ONE (20:13)
[2016-08-02] MEDS: PANTOPRAZOLE 40 MG VIAL IV SCH (20:19)
[2016-08-02] MEDS: NOREPINEPHRINE 16 MG in IV D5W 500 ML IV PRN (20:35)
[2016-08-02] MEDS ORDERED: VANCOMYCIN 0.75 GM in IV D5W 250 ML IV SCH (21:00)
[2016-08-02] MEDS ORDERED: HEPARIN INFUSION/D5W 500 ML IV ONE (22:53)
[2016-08-02] MEDS: HEPARIN INFUSION/D5W 500 ML IV PRN (23:17)
[2016-08-03] VITALS (44 sets, daily range): BP systolic 85–130; BP diastolic 45–72
[2016-08-03] MEDS: LORAZEPAM INJ 2 MG/ML VIAL IV PRN ×2 (01:45→07:30)
[2016-08-03] MEDS: IV NS 0.9% 250 ML IV PRN (01:46)
--- NOTE | 2016-08-03 02:21 | NUR ---
HOUSEKEEPING/LAUNDRY SUPERVISOR. AM CARE. ORAL CARE,BED BATH GIVEN. LINEN CHANGED. REMAINING SAME VENT SETTING TOLERATED SAT 98%. MANAGER BUSINESS SHOWING S TACH. IV RT UPPER ARM PICC LINE. IV LEVOPHED 5MCG/MIN, HEPARIN 600UNITS /H LAURA SOFT WRIST RESTRAINT, CHECKED AND RELEASED. NO INJURY OR REDNESS NOTED. FC PATENT. URINE DRAINING. AFEBRILE. WILL CONTINUE TO MONITOR VITALS.
[2016-08-03] MEDS: PIPERACILLIN /TAZOBACTAM 2.25 G in IV D5W 50 ML IV SCH ×4 (04:25→22:19)
[2016-08-03 05:01] LABS: BASOPHILS # (AUTO) 0.1 /CMM (0.0-0.2); BASOPHILS % (AUTO) 0.4 % (0.0-2.0); EOSINOPHILS # (AUTO) 0.6 /CMM (0.0-0.7); EOSINOPHILS % (AUTO) 3.7 % (0.0-6.0); HEMATOCRIT 28 % (39-51); HEMOGLOBIN 9.8 g/dL (13.5-17.5); LYMPHOCYTES # (AUTO) 1.3 /CMM (0.8-4.8); LYMPHOCYTES % (AUTO) 8.7 % (20.0-44.0); MEAN CORPUSCULAR HEMOGLOBIN 31 PG (26.0-33.0); MEAN CORPUSCULAR HGB CONC 35 g/dl (31.0-36.0); MEAN CORPUSCULAR VOLUME 89 fL (80-96); MONOCYTES % (AUTO) 6.6 % (2.0-12.0); NEUTROPHILS # (AUTO) 12.5 /CMM (1.8-8.9); NEUTROPHILS % (AUTO) 80.6 % (43.0-81.0); PLATELET COUNT (AUTO) 293 /CMM (150-450); RDW COEFFICIENT OF VARIATION 14.8 (11.5-15.0); RED BLOOD CELL COUNT(AUTO) 3.17 MIL/uL (4.5-6.0); WHITE BLOOD COUNT (AUTO) 15.5 K/uL (4.3-11.0)
[2016-08-03 05:16] LABS: CALCIUM, SERUM 6.8 mg/dL (8.5-10.1); POTASSIUM 3.5 mmol/L (3.5-5.1)
[2016-08-03 05:26] LABS: CREATININE 7.5 mg/dL (0.6-1.3)
[2016-08-03] MEDS: ALBUTEROL FS 2.5 MG/3 ML VIAL.NEB NEB SCH ×2 (07:09→15:30)
[2016-08-03] MEDS: LACTOBACILLUS RHAMNOSUS GG 1 EACH CAP.SPRINK PO SCH ×2 (08:30→16:33)
[2016-08-03] MEDS: ASPIRIN 325 MG TABLET NG SCH (08:30)
--- NOTE | 2016-08-03 11:10 | NUR ---
SOIL CHECKER.DR GRAY SEEN THE PT HEPARIN DRIP D/C.
--- NOTE | 2016-08-03 11:13 | NUR ---
ENGINEERING CLERK. DR JANE SEEN THE PT BICARB DRIP STARTED.
[2016-08-03] MEDS ORDERED: IV SET PRIMARY PUMP SET 1 EA INFUS.SET MC ONE ×2 (12:04→19:55)
[2016-08-03] MEDS: Sodium Bicarbonate 100 MEQ in IV 1/2NS 1000 ML 1,000 ML IV PRN ×2 (12:11→22:19)
--- NOTE | 2016-08-03 12:52 | NUR ---
GENERAL HARDWARE SALESPERSON. PT ON SIMV MODE. AT 1130. WILL CONTINUE TO MONITOR VITALS.LEVOPHED HELD. BICARB DRIP 100ML/H STARTED.
[2016-08-03 13:14] LABS: ABG BASE EXCESS -8.8 mmol/L; ABG OXYGEN SATURATION 96.8 % (92.0-98.5); ABG PH 7.477 (7.350-7.450); ABG PO2 109.1 mmHg (75.0-100.0); ABG TOTAL HEMOGLOBIN 9.5 G/dL (13.5-18.0); AaDO2 83.7 mmHg; COHb 0.2 % (0.5-1.5); MetHb 0.7 % (0.0-1.5); O2Hb 95.9 % (94.0-97.0); SITE, ABG Right Radial
--- NOTE | 2016-08-03 13:36 | NUR ---
RT PER DR YAO PATIENT WAS WEANED AND EXTUBATED. PLACED ON 2L N/C SANDRA WELL.
--- NOTE | 2016-08-03 15:00 | NUR ---
CODE STATUS. PT EXTUBATED, FOLLOWS COMMANDS, WHISPERING WORDS THAT ARE CLEAR, WRITING NOTES ALBEIT BARELY LEGIBLE HANDWRITING. D/W PT CODE STATUS, RE INTUBATION STATUS AND POSSIBILITY OF HEMODIALYSIS IF NECESSARY. WITNESSED BY DR YAO AND RN MARYJO Gray PT WANTS FULL CODE, REINTUBATION AND HD IF NECESSARY LONG "I AM NOT BRAIN ". MALLIKA ARAIZA AND MAXIMILIAN AWARE AND AGREE TO SAME
--- NOTE | 2016-08-03 15:54 | NUR ---
MAST MAKER. PT EXTUBATED. AROUND 1320. AWAKE, ALERT, FOLLOW COMMANDS. NPO, PT IS LETHARGIC. LT NARE NGT INTACT.CLAMPED./ VP OUTCOMES SHOWING S TACH. OXYGEN 2L VIA NASAL CANNULA. SAT 99%. NO ACUTE DISTRESS NOTED. RESTRAINT OFF. FC PATENT. URINE DRAINING. AFEBRILE.PT CODE STATUS CHANGED. NOW FULL CODE. LEVOPHED OFF FROM 1200. BLOOD PRESSURE STABLE. TURN AND REPOSITION Q2H. WILL CONTINUE TO MONITOR VITALS.
[2016-08-03] MEDS: PANTOPRAZOLE 40 MG VIAL IV SCH (19:32)
[2016-08-03] MEDS ORDERED: IV 1/2NS 1000 ML 1,000 ML IV ONE (19:55)
[2016-08-03] MEDS ORDERED: SODIUM BICARBONATE SYR 50 MEQ/50 ML DISP.SYRIN ONE ×3 (19:55→22:29)
--- NOTE | 2016-08-03 20:00 | NUR ---
RN INITIAL NOTES RECEIVED PT AWAKE ON BED, DROWSY BUT A/O X3. ON 2L NASAL CANNULA, SATURATING WELL, NO S/S OF RESP DISTRESS. CURRENTLY ST ON THE MONITOR, HR 110-120'S. LEFT NGT IS CLAMPED AND INTACT. SCHAFER CATH INTACT. RIGHT UPPER ARM PICC LINE, RIGHT FOREARM 20G, LEFT FOREARM 20 WITH NABICARB 100MEQ IN 1/2NS @ 100MLS/HR, FLUSHED AND PATENT, NO S/S OF INFILTRATION/INFECTION, DRESSINGS CDI. BED LOW AND LOCKED, SIDERAILS UP, CALL LIGHT WITHIN REACH. WILL MONITOR
[2016-08-03] MEDS: HEPARIN SODIUM, PORCINE 5000 UNITS/1 ML VIAL SQ SCH (20:54)
[2016-08-03] MEDS ORDERED: MUPIROCIN OINT 2% 22 GM TUBE ONE (21:03)
[2016-08-04] VITALS (68 sets, daily range): BP systolic 63–192; BP diastolic 40–113
[2016-08-04] MEDS: ALBUTEROL FS 2.5 MG/3 ML VIAL.NEB NEB SCH ×4 (00:15→22:56)
[2016-08-04] MEDS: IPRATROPIUM NEB FS 0.5 MG/2.5 ML AMPUL.NEB NEB PRN ×2 (00:34→07:27)
[2016-08-04] MEDS ORDERED: IV SET PRIMARY PUMP SET 1 EA INFUS.SET MC ONE ×5 (01:42→17:24)
[2016-08-04] MEDS: NOREPINEPHRINE 16 MG in IV D5W 500 ML IV PRN ×2 (02:00→15:47)
[2016-08-04 04:42] LABS: BASOPHILS % (AUTO) 0.2 % (0.0-2.0); EOSINOPHILS # (AUTO) 0.2 /CMM (0.0-0.7); EOSINOPHILS % (AUTO) 1.3 % (0.0-6.0); HEMATOCRIT 25 % (39-51); HEMOGLOBIN 8.7 g/dL (13.5-17.5); LYMPHOCYTES # (AUTO) 1.1 /CMM (0.8-4.8); LYMPHOCYTES % (AUTO) 7.9 % (20.0-44.0); MEAN CORPUSCULAR HEMOGLOBIN 31 PG (26.0-33.0); MEAN CORPUSCULAR HGB CONC 35 g/dl (31.0-36.0); MEAN CORPUSCULAR VOLUME 88 fL (80-96); MONOCYTES # (AUTO) 0.9 /CMM (0.1-1.30); MONOCYTES % (AUTO) 6.7 % (2.0-12.0); NEUTROPHILS # (AUTO) 11.4 /CMM (1.8-8.9); NEUTROPHILS % (AUTO) 83.9 % (43.0-81.0); PLATELET COUNT (AUTO) 293 /CMM (150-450); RDW COEFFICIENT OF VARIATION 14.4 (11.5-15.0); RED BLOOD CELL COUNT(AUTO) 2.81 MIL/uL (4.5-6.0); WHITE BLOOD COUNT (AUTO) 13.6 K/uL (4.3-11.0)
[2016-08-04] MEDS: PIPERACILLIN /TAZOBACTAM 2.25 G in IV D5W 50 ML IV SCH ×4 (04:54→22:09)
[2016-08-04 04:59] LABS: CREATININE 6.5 mg/dL (0.6-1.3); MAGNESIUM 1.9 mg/dL (1.8-2.4)
[2016-08-04 05:20] LABS: POTASSIUM 2.7 mmol/L (3.5-5.1)
[2016-08-04 05:21] LABS: CALCIUM, SERUM 5.9 mg/dL (8.5-10.1)
--- NOTE | 2016-08-04 05:30 | NUR ---
RN NOTES CALLED DR JANE FOR CRITICAL LAB VALUES: K 2.7, BUN 86, CREA 6.5, CA 5.9. DR JANE ORDERED 40MEQ POTASSIUM PO Q2H X2
[2016-08-04] MEDS ORDERED: POTASSIUM CHLORIDE 20 MEQ TAB.PRT.SR PO ONE ×3 (05:35→08:00)
--- NOTE | 2016-08-04 06:30 | NUR ---
RN CLOSING NOTES PT REMAINS STABLE OF THE MOMENT. ALL DUE MEDS GIVEN, AM CARE PROVIDED. WILL ENDORSE TO AM RN
--- NOTE | 2016-08-04 07:20 | NUR ---
RT PATIENT SEEN IN RESP DISTRESS WITH HR OF 140, RR 40, SPO2 83% ON 5L N/C. PER MD ORDER PATIENT PLACED ON BIPAP AND RESP TX GIVEN. ALARMS CHECKED + AUDIBLE. CANU BAG AT HOB Addendum: 08/04/16 at 0801 by RICH SHAFER RT Amended: Links added.
--- NOTE | 2016-08-04 07:30 | NUR ---
ICU/RN: PT RECEIVED ON BIPAP, RT AT THE BEDSIDE. PER RT REPORT, PT RECEIVED WITH RESP DISTRESS, PLACED ON BIPAP FOR RESP SUPPORT. RR IN 30'S, WITH IMPROVED HR FROM 140'S TO 120'S. PT A&OX4, DENIES PAIN AND DISCOMFORT. MILD PITTING EDEMA NOTED ON R DORSAL FOOT. CIRCULATION, PULSES AND SENSATION PRESENT ON UPPER AND LOWER EXTREMITIES. NGT + PLACEMENT VIA AUSCULTATION. [place] ML PATENT AND INTACT, WITH BICARB DRIP INFUSING AT ORDERED RATE. FC DRAINING WELL TO GRAVITY. CALL LIGHT WITHIN REACH. WILL CONT TO MONITOR PT.
[2016-08-04] MEDS ORDERED: Calcium Gluconate 1GM/10ML 9.3 MEQ in IV D5W 250 ML IV ONE (09:00)
[2016-08-04] MEDS: HEPARIN SODIUM, PORCINE 5000 UNITS/1 ML VIAL SQ SCH ×2 (09:14→20:11)
[2016-08-04] MEDS: LACTOBACILLUS RHAMNOSUS GG 1 EACH CAP.SPRINK PO SCH ×2 (09:14→16:06)
[2016-08-04] MEDS: ASPIRIN 325 MG TABLET NG SCH (09:14)
--- NOTE | 2016-08-04 09:37 | NUR ---
ICU/RN: DR JANE AT THE BEDSIDE; UPDATED ON PT RESPIRATORY STATUS; WITH SOB AND LABORED BREATHING ON NC OVERNIGHT AND REQUIRED PLACEMENT ON BIPAP FOR RESP SUPPORT. ABN LABS DW . INFORMED OF PT WISH TO BE FULL CODE YESTERDAY, THIS AM, PT STATES "JUST FOLLOW WHATEVER IS ON MY ADVANCED DIRECTIVE. THE DIRECTIONS THERE ARE CLEAR DAY." INFORMED PT THAT DIRECTIVE STATES A NO CODE. PT THEN STATES "NO. IT'S OK FOR ME TO BE REINTUBATED, CPR IS OK. I WANT EVERYTHING TO BE DONE UNLESS IM BRAIN . I NEED TO MAKE CHANGES TO MY ADVANCE DIRECTIVE." PER DR JANE "KEEP FULL CODE."
[2016-08-04 10:03] LABS: ABG BASE EXCESS -4.9 mmol/L; ABG OXYGEN SATURATION 95.8 % (92.0-98.5); ABG PCO2 22.8 mmHg (35.0-45.0); ABG PH 7.493 (7.350-7.450); ABG PO2 90.6 mmHg (75.0-100.0); ABG TOTAL HEMOGLOBIN 9.7 G/dL (13.5-18.0); AaDO2 240.3 mmHg; COHb 0.1 % (0.5-1.5); MetHb 0.4 % (0.0-1.5); O2Hb 95.3 % (94.0-97.0); SITE, ABG Right Radial
--- NOTE | 2016-08-04 10:27 | NUR ---
POST ABG RESULTS PATIENT REMOVED OFF BIPAP AND PLACED ON 12L SIMPLE MASK. RN AWARE
--- NOTE | 2016-08-04 11:04 | NUR ---
PATIENT UNABLE TO SANDRA BEING OFF BIPAP DUE TO INCREASE WORK OF BREATHING INCREASE HR AND DESATURATION.. PLACED BACK ON BIPAP Addendum: 08/04/16 at 1105 by RICH SHAFER RT Amended: Links added.
--- NOTE | 2016-08-04 12:58 | NUR ---
ICU/RN: PT CONTINUES TO HAVE INCREASED WORK OF BREATHING, MILD CONFUSION, ST 130-140'S, RR 38-45'S, DIAPHORESIS, RESTLESSNESS ON BIPAP. HOB ELEVATED, PLACED ON 100% FIO2 WITH SATURATION IN MID TO LOW 80'S. DR WHITE NOTIFIED WITH ORDERS FOR INTUBATION. PT AGREEABLE TO REINTUBATION; EDUCATED. NAIL POLISH BRUSH MACHINE FEEDER NOTIFIED.
--- NOTE | 2016-08-04 13:20 | NUR ---
ICU/RN: PT REINTUBATED BY DR RODRIGUEZ WT ETT 7.5 AT 25 LIP LINE. PT TOLERATED WELL. ORDERS FOR CXR NOTED, CARRIED OUT. DR JANE, DR WHITE AND DR SAN UPDATED ON PT STATUS.
[2016-08-04] MEDS ORDERED: SUCCINYLCHOLINE CHLORIDE 20 MG/ML VIAL IV ONE (13:30)
[2016-08-04] MEDS ORDERED: ETOMIDATE 2 MG/ML VIAL IV ONE (13:30)
--- NOTE | 2016-08-04 13:43 | NUR ---
RT PER DR WHITE PATIENT RE-INTUBATED FOR INCREASED WORK OF BREATHING, INCREASED HR, AND DESATURATION. PATIENT INTUBATED BY DR RODRIGUEZ WITH A 7.5 ETT SECURED AT THE 25CM MID LIP VIA ANCHOR VAST. POSITIVE CO2 DETECTOR COLOR CHANGE. BILAT BREATH SOUNDS HEARD. BILAT CHEST RISE NOTED. C+S SAMPLE TAKEN AND SENT TO LAB. SUCTIONED WITH SMALL AMT OF BLOOD TINGED SEMITHICK SECRETIONS. B/S DIM WHEEZING. PLACED ON [facility] VENT WITH PREVIOUS ORDERED SETTINGS. VENT ALARMS CHECKED + AUDIBLE. AMBU BAG AT HOB. Addendum: 08/04/16 at 1347 by RICH SHAFER RT Amended: Links added.
[2016-08-04] MEDS: PROPOFOL 100 ML IV PRN ×3 (15:23→20:33)
[2016-08-04] MEDS: IV NS 0.9% 250 ML IV PRN (15:49)
[2016-08-04 15:55] LABS: ABG BASE EXCESS -5.3 mmol/L; ABG OXYGEN SATURATION 98.1 % (92.0-98.5); ABG PCO2 25.7 mmHg (35.0-45.0); ABG PH 7.452 (7.350-7.450); ABG PO2 187.9 mmHg (75.0-100.0); ABG TOTAL HEMOGLOBIN 9.7 G/dL (13.5-18.0); AaDO2 355.5 mmHg; MetHb 0.3 % (0.0-1.5); O2Hb 97.8 % (94.0-97.0); SITE, ABG Right Radial
[2016-08-04] MEDS ORDERED: BUMETANIDE INJ 4 MG in IV D5W 24 ML IV ONE (17:00)
--- NOTE | 2016-08-04 17:30 | NUR ---
ICU/RN: DR JEFFERS AT BEDSIDE FOR CARDIOLOGY F/U; UPDATED ON PT STATUS, REINTUBATED ON PRESSORS. WITH PALPABLE PULSES ON BILAT DP; WARMTH, CIRCULATION PRESENT S/P HEPARIN GTT. NO NEW ORDERS.
--- NOTE | 2016-08-04 19:05 | NUR ---
ICU/RN: PT IN BED, COMFORTABLE, TOLERATING CURRENT SETTINGS. LEVOPHED TITRATED TO PARAMATERS, SEDATED ON 45MCG/MIN OF DIPRIVAN, ON BILAT SOFT WRIST RESTRAINTS. FC DRAINING WELL TO GRAVITY. CARE ENDORSED TO PM RN FOR ZENY.
[2016-08-04] MEDS: PANTOPRAZOLE 40 MG VIAL IV SCH (19:17)
--- NOTE | 2016-08-04 19:30 | NUR ---
RN INITIAL NOTES RECEIVED PT SEDATED ON BED WITH DIPRIVAN DRIP @ 45MCG/KG/MIN. INTUBATED AND ON VENT, AC 16, TV 550, 40% FIO2, PEEP 5, SATURATING WELL, NO S/S OF RESP DISTRESS. CURRENTLY SR ON THE MONITOR, HR 90'S. ON LEVO DRIP @ 16MCG/MIN TO KEEP SBP > 90. LEFT NARE NGT CLAMPED AND INTACT. SCHAFER CATH NOTED. RIGHT UPPER ARM PICC, RIGHT FOREARM 20, LEFT FOREARM 20G WITH BUMEX DRIP, FLUSHED AND PATENT, NO S/S OF INFILTRATION/INFECTION, DRESSINGS CDI. BED LOW AND LOCKED, SIDERAILS UP. BILATERAL SOFT WRIST RESTRAINTS INTACT. WILL MONITOR
--- NOTE | 2016-08-04 22:00 | NUR ---
RN NOTES EDGAR KOEHLER ARRIVED IN THE UNIT TO VISIT THE PATIENT AND ASK SOME QUESTIONS. SHE TOOK THE PATIENT'S WALLET, CELLPHONE, AND EYEGLASSES HOME. ITEMS WERE TAKEN OUT OF THE ICU SAFE. SHE SIGNED THE BELONGINGS LIST PAPER AND CASTINGS DRAFTER WAS MADE AWARE WELL
[2016-08-05] VITALS (104 sets, daily range): BP systolic 88–126; BP diastolic 52–70
[2016-08-05] MEDS ORDERED: IV SET PRIMARY PUMP SET 1 EA INFUS.SET MC ONE ×3 (01:14→17:17)
[2016-08-05] MEDS: PROPOFOL 100 ML IV PRN ×5 (01:20→20:31)
[2016-08-05] MEDS: PIPERACILLIN /TAZOBACTAM 2.25 G in IV D5W 50 ML IV SCH ×4 (04:20→23:31)
[2016-08-05 05:15] LABS: BASOPHILS % (AUTO) 0.2 % (0.0-2.0); EOSINOPHILS # (AUTO) 0.8 /CMM (0.0-0.7); EOSINOPHILS % (AUTO) 3.9 % (0.0-6.0); HEMATOCRIT 26 % (39-51); LYMPHOCYTES # (AUTO) 1.9 /CMM (0.8-4.8); LYMPHOCYTES % (AUTO) 9.4 % (20.0-44.0); MEAN CORPUSCULAR HEMOGLOBIN 31 PG (26.0-33.0); MEAN CORPUSCULAR HGB CONC 35 g/dl (31.0-36.0); MEAN CORPUSCULAR VOLUME 90 fL (80-96); MONOCYTES # (AUTO) 1.7 /CMM (0.1-1.30); MONOCYTES % (AUTO) 8.4 % (2.0-12.0); NEUTROPHILS # (AUTO) 15.8 /CMM (1.8-8.9); NEUTROPHILS % (AUTO) 78.1 % (43.0-81.0); PLATELET COUNT (AUTO) 353 /CMM (150-450); RDW COEFFICIENT OF VARIATION 14.9 (11.5-15.0); RED BLOOD CELL COUNT(AUTO) 2.89 MIL/uL (4.5-6.0); WHITE BLOOD COUNT (AUTO) 20.2 K/uL (4.3-11.0)
[2016-08-05 05:23] LABS: CALCIUM, SERUM 7.1 mg/dL (8.5-10.1); CREATININE 6.9 mg/dL (0.6-1.3); MAGNESIUM 2.2 mg/dL (1.8-2.4); PHOSPHORUS 5.2 mg/dL (2.5-4.9); POTASSIUM 3.6 mmol/L (3.5-5.1)
[2016-08-05 05:31] LABS: BAND % (MANUAL) 2 % (0.0-5.0); EOSINOPHILS % (MANUAL) 4 % (0-4); LYMPHOCYTES % (MANUAL) 12 % (16-48); MONOCYTES % (MANUAL) 11 % (0-11.0); NEUTROPHILS % (MANUAL) 71 (42-76)
[2016-08-05 05:32] LABS: ANISOCYTOSIS 1+; PLATELET ESTIMATE ADEQUATE
--- NOTE | 2016-08-05 05:45 | NUR ---
RN NOTES CALLED DR JANE TO NOTIFY HIM OF THE PATIENT'S TROPONIN 17.906, NO NEW ORDERS.
--- NOTE | 2016-08-05 06:30 | NUR ---
RN CLOSING NOTES PT REMAINS STABLE OF THE MOMENT. ALL DUE MEDS GIVEN. AM CARE PROVIDED. WILL ENDORSE TO AM RN
--- NOTE | 2016-08-05 08:02 | NUR ---
WOUND CARE CONSULT: PT PRESENTS WITH IMMOBILITY AND INCONTINENCE OF STOOL. RECOMMENDATIONS MADE FOR SKIN PROTECTION. DISCUSSED WITH NURSING STAFF. PT ON FIRST STEP MATTRESS. ALL SKIN PROTECTION MEASURES IN PLACE. MD IN AGREEMENT WITH PLAN OF CARE.
[2016-08-05] MEDS: ALBUTEROL FS 2.5 MG/3 ML VIAL.NEB NEB SCH ×2 (08:03→23:45)
[2016-08-05] MEDS: ASPIRIN 325 MG TABLET NG SCH (08:16)
[2016-08-05] MEDS: LACTOBACILLUS RHAMNOSUS GG 1 EACH CAP.SPRINK PO SCH ×2 (08:16→16:46)
[2016-08-05] MEDS: HEPARIN SODIUM, PORCINE 5000 UNITS/1 ML VIAL SQ SCH (08:18)
--- NOTE | 2016-08-05 08:20 | NUR ---
EDUCATIONAL MANAGER NOTE Rendered sedation vacation, patient able to follow commands, opens eyes, able to answer yes/no questions. Had to place back on sedation for episodes of trying to reach ETT.
[2016-08-05] MEDS ORDERED: FEE PK DOSING 1 MIN EA MC ONE (09:22)
[2016-08-05] MEDS ORDERED: SECONDARY IV SET 1 EA INFUS.SET MC ONE (10:01)
[2016-08-05] MEDS: VANCOMYCIN 0.75 GM in IV D5W 250 ML IV SCH (10:03)
--- NOTE | 2016-08-05 11:40 | NUR ---
COMMERCIAL RELIEF DRIVER NOTE 0720: Received patient sedated on Diprivan. With ETT to vent, tolerated settings at this time. With NGT intact, clamped. SR 90's on the monitor. With Lopez cath intact, noted with clear yellow urine drained to BSD. [place] PICC intact, with Diprivan @ 40mcg and Levo @ 8mcg, will titrate them accordingly. HUMAN RESOURCES CONSULTANT restraints on for safety, noted with arms movements at times. Per previous nurse, Dr. Pittman aware for the Trop 17.906, continue Rx. Awaiting for transfer plan. 0845: S/E by Dr. Alford, spoke with GOSIA Elena, discussed re:the POC. 0900: S/E by dr. Edge, made aware patient had 1350mL UOP from previous shift, no new order at this time. Continue POC.
[2016-08-05] MEDS: NOREPINEPHRINE 16 MG in IV D5W 500 ML IV PRN ×2 (14:52→19:21)
[2016-08-05] MEDS ORDERED: BUMETANIDE INJ 4 MG in IV D5W 24 ML IV ONE (16:30)
[2016-08-05] MEDS ORDERED: HEPARIN SODIUM, PORCINE 5000 UNITS/1 ML VIAL IV ONE (16:30)
[2016-08-05] MEDS: HEPARIN INFUSION/D5W 500 ML IV PRN (17:25)
[2016-08-05] MEDS: PANTOPRAZOLE 40 MG VIAL IV SCH (18:30)
--- NOTE | 2016-08-05 18:38 | NUR ---
CLIENT ACCOUNT ASSISTANT NOTE Patient on Heparin drip @ 800 units/hr as ordered. No any significant changes noted at this time. On Levo @ 7mcg, Diprivan @ 40mcg and Bumex ongoing as ordered. VSS at this time. Turned and repositioned q2.
--- NOTE | 2016-08-05 19:40 | NUR ---
GLOVE OPERATOR RCD PT W/DX NSTEMI; PT IS SEDATED ON DIPRIVAN AT 40 MCG/KG/MIN AND BL SOFT WRIST RESTRAINTS IN PLACE PT WAKES UP AND REACHES FOR ET TUBE. INTUBATED 7.5 @ 25 W/VENT SETTINGS AC 16 500 40% 5; THICK WHITE SECRETIONS NOTED. [place] PICC PATENT AND WITH GOOD BLOOD RETURN; HEPARIN DRIP AT 800 UNITS/HR W/PTT TO BE DRAWN AT 2335. SCHAFER CATHETER DRAINING ADEQUATE AMOUNT OF YELLOW URINE. HOB ELEVATED. CONTINUE TO MONITOR.
[2016-08-05 21:27] LABS: ABG BASE EXCESS -1.9 mmol/L; ABG OXYGEN SATURATION 96.5 % (92.0-98.5); ABG PH 7.488 (7.350-7.450); ABG TOTAL HEMOGLOBIN 9.2 G/dL (13.5-18.0); COHb 0.1 % (0.5-1.5); MetHb 1.4 % (0.0-1.5); O2Hb 95.1 % (94.0-97.0); SITE, ABG Right Radial; VENT MODE, BG AC 16 550 40 +5
--- NOTE | 2016-08-05 23:35 | NUR ---
SAWMILL RELIEF WORKER PTT PTT 47; NO CHANGES TO HEPARIN DRIP PER PROTOCOL. RECHECK IN 6 HRS.
[2016-08-06] VITALS (91 sets, daily range): BP systolic 91–120; BP diastolic 51–68
[2016-08-06] MEDS ORDERED: IV SET PRIMARY PUMP SET 1 EA INFUS.SET MC ONE ×3 (00:07→22:12)
[2016-08-06] MEDS: PROPOFOL 100 ML IV PRN ×5 (01:30→23:02)
[2016-08-06] MEDS: PIPERACILLIN /TAZOBACTAM 2.25 G in IV D5W 50 ML IV SCH ×4 (05:00→23:02)
[2016-08-06 05:04] LABS: BASOPHILS # (AUTO) 0.1 /CMM (0.0-0.2); BASOPHILS % (AUTO) 0.4 % (0.0-2.0); EOSINOPHILS % (AUTO) 4.8 % (0.0-6.0); HEMATOCRIT 27 % (39-51); LYMPHOCYTES # (AUTO) 1.9 /CMM (0.8-4.8); LYMPHOCYTES % (AUTO) 9.3 % (20.0-44.0); MEAN CORPUSCULAR HEMOGLOBIN 31 PG (26.0-33.0); MEAN CORPUSCULAR HGB CONC 34 g/dl (31.0-36.0); MEAN CORPUSCULAR VOLUME 91 fL (80-96); MONOCYTES # (AUTO) 1.3 /CMM (0.1-1.30); MONOCYTES % (AUTO) 6.5 % (2.0-12.0); NEUTROPHILS # (AUTO) 16.4 /CMM (1.8-8.9); PLATELET COUNT (AUTO) 387 /CMM (150-450); RDW COEFFICIENT OF VARIATION 15.2 (11.5-15.0); RED BLOOD CELL COUNT(AUTO) 2.92 MIL/uL (4.5-6.0); WHITE BLOOD COUNT (AUTO) 20.7 K/uL (4.3-11.0)
[2016-08-06 05:23] LABS: CALCIUM, SERUM 7.3 mg/dL (8.5-10.1); CREATININE 6.4 mg/dL (0.6-1.3); MAGNESIUM 2.2 mg/dL (1.8-2.4); PHOSPHORUS 6.4 mg/dL (2.5-4.9); POTASSIUM 3.1 mmol/L (3.5-5.1)
--- NOTE | 2016-08-06 06:00 | NUR ---
FUR POLISHER PTT PTT 37; HEPARIN DRIP INCREASED BY 150 UNITS/HR; NOW AT 950 UNITS/HR. RECHECK IN 6 HRS.
[2016-08-06 06:17] LABS: BAND % (MANUAL) 3 % (0.0-5.0); EOSINOPHILS % (MANUAL) 3 % (0-4); LYMPHOCYTES % (MANUAL) 7 % (16-48); MONOCYTES % (MANUAL) 5 % (0-11.0); NEUTROPHILS % (MANUAL) 82 (42-76)
[2016-08-06 06:18] LABS: PLATELET ESTIMATE ADEQUATE
--- NOTE | 2016-08-06 07:10 | NUR ---
CATHEAD WORKER- INITIAL NOTE RECEIVED PT SEDATED, ORALLY INTUBATED, ET TUBE 7.5 AT 25 CM AT THE LIP, ON MECHANICAL VENT, SETTINGS ORDERED, RESPIRATIONS EVEN AND UNLABORED, NO SOB OR DISTRESS PRESENT, SATURATING AT 99%. BEDSIDE MONITOR REVEALS NORMAL SINUS RHYTHM, HR= 89. THREE IV'S PRESENT: 1) [place] PICC LINE, 2) RIGHT WRIST 20G HL AND 3) LEFT WRIST 20G HL. ALL IVS FLUSHED, PATENT, INTACT AND FREE OF REDNESS, SWELLING AND INFLAMMATION. PT RUNNING THE FOLLOWIN) DIPRIVAN AT 40 MCG/MIN, 2) LEVOPHED AT 4MCG/MIN SCHAFER CATHETER DRAINING TO GRAVITY CLEAR, YELLOW URINE. PT CONTINUES ON BILATERAL SOFT WRIST RESTRAINTS. SAFETY MEASURES TAKEN: BED LOCKED AND IN LOW POSITION, SIDE RAILS UP X2, BED ALARM ON AND CALL LIGHT WITHIN REACH, WILL CONTINUE TO MONITOR.
[2016-08-06] MEDS: ALBUTEROL FS 2.5 MG/3 ML VIAL.NEB NEB SCH ×3 (07:41→23:40)
--- NOTE | 2016-08-06 07:53 | NUR ---
RT PATIENT REC'D ORALLY INTUBATED ON [facility] VENT WITH SETTINGS SET BY MD SANDRA PICHARDO. VENT ALARMS CHECKED + AUDIBLE. PT SUCTIONED WITH SMALL AMT PALE SEMITHICK SECRETIONS. B/S DIM COARSE. BILAT CHEST RISE NOTED. AMBU BAG AT HOB. CONT CURRENT PLAN OF RESP CARE. Addendum: 08/06/16 at 0755 by RICH SHAFER RT Amended: Links added.
[2016-08-06] MEDS: ASPIRIN 325 MG TABLET NG SCH (08:41)
[2016-08-06] MEDS: LACTOBACILLUS RHAMNOSUS GG 1 EACH CAP.SPRINK PO SCH ×2 (08:41→16:54)
[2016-08-06 09:04] LABS: ABG BASE EXCESS -3.3 mmol/L; ABG OXYGEN SATURATION 94.6 % (92.0-98.5); ABG PCO2 26.5 mmHg (35.0-45.0); ABG PH 7.477 (7.350-7.450); ABG PO2 78.9 mmHg (75.0-100.0); ABG TOTAL HEMOGLOBIN 10.6 G/dL (13.5-18.0); AaDO2 175.8 mmHg; COHb 0.5 % (0.5-1.5); MetHb 0.8 % (0.0-1.5); O2Hb 93.4 % (94.0-97.0); SITE, ABG Right Radial; VENT MODE, BG AC 16 500 40 +5
--- NOTE | 2016-08-06 09:10 | NUR ---
DR. JANE AT BEDSIDE WITH NEW ORDERS TO START PT ON TUBE FEEDING. FNS CONSULT PLACED. WILL CONTINUE TO MONITOR.
[2016-08-06] MEDS ORDERED: POTASSIUM CL. PREMIX PERIPHER. 50 ML IV SCH (09:30)
[2016-08-06] MEDS ORDERED: BUMETANIDE INJ 4 MG in IV NS 0.9% 24 ML IV ONE (09:30)
[2016-08-06] MEDS ORDERED: POTASSIUM CHLORIDE 20 MEQ POWDER PACKET NG ONE (10:00)
[2016-08-06] MEDS ORDERED: SECONDARY IV SET 1 EA INFUS.SET MC ONE (10:06)
[2016-08-06] MEDS: SEVELAMER CARBONATE 0.8 GM POWD.PACK GT SCH ×2 (10:09→16:55)
--- NOTE | 2016-08-06 11:10 | NUR ---
WILLIAM (VEGETABLE HARVEST MACHINE OPERATOR) CALLED AND RECOMMENDED TO START PT ON NOVASOURCE AT 30 MLS/HR. ORDERS PLACED AND CARRIED OUT. WILL CONTINUE TO MONITOR.
--- NOTE | 2016-08-06 13:30 | NUR ---
PTT RESULTED= 37. HEPARIN GTT INCREASED 150 U, NEW RATE IS 1100 UNITS/HR. VERIFIED RATE CHANGE WITH JOB RN. WILL CONTINUE TO MONITOR.
[2016-08-06] MEDS: RENAL NOVASOURCE 1,000 ML BOTTLE GT PRN (15:27)
--- NOTE | 2016-08-06 16:30 | NUR ---
PT SPIKED TEMP OF 100.1 AND IS NOW SINUS TACHYCARDIA, HR= 114. INFORMED DR. JANE WITH ORDERS OF TYLENOL 650 MG Q6H PRN MILD PAIN/FEVER. ORDER PLACED AND CARRIED OUT. Addendum: 08/06/16 at 1915 by CHINMAY OLIVEIRA RN ADDITIONAL NOTE: PER , NO BLOOD CULTURES NEEDED.
--- NOTE | 2016-08-06 17:11 | NUR ---
PATIENT REMAINS STABLE ON [facility] VENT NO CHANGES MADE CONT CURRENT PLAN OF CARE. Addendum: 08/06/16 at 1713 by RICH SHAFER RT Amended: Links added.
[2016-08-06] MEDS: ACETAMINOPHEN 650 MG/20.3 ML UDC NG PRN (17:39)
[2016-08-06] MEDS: PANTOPRAZOLE 40 MG VIAL IV SCH (18:44)
[2016-08-06] MEDS: HEPARIN INFUSION/D5W 500 ML IV PRN (19:03)
[2016-08-06] MEDS: IV NS 0.9% 250 ML IV PRN (19:05)
--- NOTE | 2016-08-06 20:14 | NUR ---
PT RECEIVED INTUBATED ON VENT WITH 7.5 ETT AT 25CM AT THE LIP. NO RESP DISTRESS PT TOLERATING VENT SETTINGS. MODERATE AMT OF THICK WHITE SECRETIONS. VENT ALARMS SET AND AUDIBLE. AMBU BAG AT [facility]. VENT PLUGGED INTO RED OUTLET. Addendum: 08/06/16 at 2016 by ROCHELLE MORALES RT Amended: Links added.
--- NOTE | 2016-08-06 20:45 | NUR ---
LECTURER IN COMPUTER SCIENCE PTT 50; NO CHANGE IN HEPARIN DRIP PER PROTOCOL. CONTINUE AT 1100 UNITS.
[2016-08-07] VITALS (42 sets, daily range): BP systolic 88–121; BP diastolic 49–63
[2016-08-07] MEDS: SEVELAMER CARBONATE 0.8 GM POWD.PACK GT SCH ×3 (02:37→16:48)
[2016-08-07] MEDS: PROPOFOL 100 ML IV PRN ×4 (04:30→16:48)
[2016-08-07] MEDS: PIPERACILLIN /TAZOBACTAM 2.25 G in IV D5W 50 ML IV SCH ×4 (04:30→23:26)
[2016-08-07 04:38] LABS: EOSINOPHILS # (AUTO) 0.7 /CMM (0.0-0.7); EOSINOPHILS % (AUTO) 3.5 % (0.0-6.0); HEMATOCRIT 27 % (39-51); HEMOGLOBIN 9.1 g/dL (13.5-17.5); LYMPHOCYTES # (AUTO) 1.3 /CMM (0.8-4.8); LYMPHOCYTES % (AUTO) 6.5 % (20.0-44.0); MEAN CORPUSCULAR HEMOGLOBIN 31 PG (26.0-33.0); MEAN CORPUSCULAR HGB CONC 34 g/dl (31.0-36.0); MEAN CORPUSCULAR VOLUME 92 fL (80-96); MONOCYTES % (AUTO) 5.2 % (2.0-12.0); NEUTROPHILS # (AUTO) 16.5 /CMM (1.8-8.9); NEUTROPHILS % (AUTO) 84.8 % (43.0-81.0); PLATELET COUNT (AUTO) 393 /CMM (150-450); RDW COEFFICIENT OF VARIATION 15.2 (11.5-15.0); WHITE BLOOD COUNT (AUTO) 19.5 K/uL (4.3-11.0)
[2016-08-07 04:57] LABS: CALCIUM, SERUM 7.4 mg/dL (8.5-10.1); MAGNESIUM 2.2 mg/dL (1.8-2.4); POTASSIUM 3.8 mmol/L (3.5-5.1)
[2016-08-07 05:48] LABS: EOSINOPHILS % (MANUAL) 3 % (0-4); LYMPHOCYTES % (MANUAL) 6 % (16-48); MONOCYTES % (MANUAL) 8 % (0-11.0); NEUTROPHILS % (MANUAL) 83 (42-76)
--- NOTE | 2016-08-07 06:21 | NUR ---
ELECTRIC METER TECHNICIAN PTT 50; NO CHANGE TO HEPARIN DRIP PER PROTOCOL KEEP HEPARIN AT 1100 UNITS/HR.
--- NOTE | 2016-08-07 07:00 | NUR ---
BARTENDER- INITIAL NOTE RECEIVED PT SEDATED, ORALLY INTUBATED, ET TUBE 7.5 AT 25 CM AT THE LIP, ON MECHANICAL VENT, SETTINGS ORDERED, RESPIRATIONS EVEN AND UNLABORED, NO SOB OR DISTRESS PRESENT, SATURATING AT 99%. BEDSIDE MONITOR REVEALS NORMAL SINUS TACHYCARDIA, HR= 103. TWO IV'S PRESENT: 1) [place] PICC LINE AND 2) LEFT WRIST 20G HL. BOTH IVS FLUSHED, PATENT, INTACT AND FREE OF REDNESS, SWELLING AND INFLAMMATION. PT RUNNING THE FOLLOWIN) DIPRIVAN AT 40 MCG/MIN AND HEPARIN GTT AT 1100 UNITS/HR. SCHAFER CATHETER DRAINING TO GRAVITY CLEAR, YELLOW URINE. NGT IN LEFT NARE RUNNING NOVASOURCE @ 40 MLS/HR. PT CONTINUES ON BILATERAL SOFT WRIST RESTRAINTS. SAFETY MEASURES TAKEN: BED LOCKED AND IN LOW POSITION, SIDE RAILS UP X2, BED ALARM ON AND CALL LIGHT WITHIN REACH, WILL CONTINUE TO MONITOR.
[2016-08-07] MEDS ORDERED: IV SET PRIMARY PUMP SET 1 EA INFUS.SET MC ONE ×2 (07:36→20:02)
[2016-08-07] MEDS: ALBUTEROL FS 2.5 MG/3 ML VIAL.NEB NEB SCH ×3 (08:17→23:11)
--- NOTE | 2016-08-07 08:30 | NUR ---
SHEETER HELPER- DURING 20 MINUTE SEDATION VACATION, RN TURNED OFF PROPOFOL GTT. PT NOTED TO BE TACHYCARDIC AND TACHYPNEIC. PT WOKE UP. PT ABLE TO FOLLOW COMMANDS. PT RE-STARTED ON PROPOFOL.
[2016-08-07] MEDS: LACTOBACILLUS RHAMNOSUS GG 1 EACH CAP.SPRINK PO SCH ×2 (09:23→16:49)
[2016-08-07] MEDS: VANCOMYCIN 0.75 GM in IV D5W 250 ML IV SCH (09:23)
[2016-08-07] MEDS: ASPIRIN 325 MG TABLET NG SCH (09:23)
[2016-08-07] MEDS ORDERED: BUMETANIDE INJ 4 MG in IV NS 0.9% 24 ML IV ONE (09:30)
[2016-08-07] MEDS: IPRATROPIUM NEB FS 0.5 MG/2.5 ML AMPUL.NEB NEB PRN ×2 (14:33→23:11)
[2016-08-07] MEDS: HEPARIN INFUSION/D5W 500 ML IV PRN (16:51)
[2016-08-07] MEDS: RENAL NOVASOURCE 1,000 ML BOTTLE GT PRN (17:57)
[2016-08-07] MEDS: IV NS 0.9% 250 ML IV PRN (17:58)
[2016-08-07] MEDS: PANTOPRAZOLE 40 MG VIAL IV SCH (18:49)
--- NOTE | 2016-08-07 23:30 | NUR ---
SIDE SPLITTER TEMP 100.0 F ,AND HR ELEVATED . COOLING MEASURES DONE AND FAN USED TO HELP REDUCE TEMP. WILL CONT TO MONITOR.
[2016-08-08] VITALS (42 sets, daily range): BP systolic 97–147; BP diastolic 55–90
[2016-08-08] MEDS ORDERED: IV SET PRIMARY PUMP SET 1 EA INFUS.SET MC ONE ×3 (00:43→20:02)
[2016-08-08] MEDS: SEVELAMER CARBONATE 0.8 GM POWD.PACK GT SCH ×3 (01:52→17:34)
[2016-08-08 05:08] LABS: BASOPHILS % (AUTO) 0.1 % (0.0-2.0); EOSINOPHILS % (AUTO) 4.8 % (0.0-6.0); HEMATOCRIT 27 % (39-51); HEMOGLOBIN 9.3 g/dL (13.5-17.5); LYMPHOCYTES # (AUTO) 1.4 /CMM (0.8-4.8); MEAN CORPUSCULAR HEMOGLOBIN 31 PG (26.0-33.0); MEAN CORPUSCULAR HGB CONC 34 g/dl (31.0-36.0); MEAN CORPUSCULAR VOLUME 92 fL (80-96); MONOCYTES # (AUTO) 0.9 /CMM (0.1-1.30); MONOCYTES % (AUTO) 4.5 % (2.0-12.0); NEUTROPHILS # (AUTO) 16.8 /CMM (1.8-8.9); NEUTROPHILS % (AUTO) 83.6 % (43.0-81.0); PLATELET COUNT (AUTO) 397 /CMM (150-450); RDW COEFFICIENT OF VARIATION 15.7 (11.5-15.0); RED BLOOD CELL COUNT(AUTO) 2.99 MIL/uL (4.5-6.0)
[2016-08-08 05:21] LABS: CALCIUM, SERUM 8.1 mg/dL (8.5-10.1); CREATININE 5.7 mg/dL (0.6-1.3); MAGNESIUM 2.3 mg/dL (1.8-2.4); PHOSPHORUS 7.7 mg/dL (2.5-4.9); POTASSIUM 3.5 mmol/L (3.5-5.1)
[2016-08-08] MEDS: IV NS 0.9% 250 ML IV PRN (05:28)
[2016-08-08] MEDS: PIPERACILLIN /TAZOBACTAM 2.25 G in IV D5W 50 ML IV SCH ×4 (05:28→22:18)
[2016-08-08] MEDS: PROPOFOL 100 ML IV PRN ×2 (05:34→08:15)
[2016-08-08 05:51] LABS: BAND % (MANUAL) 9 % (0.0-5.0); EOSINOPHILS % (MANUAL) 7 % (0-4); LYMPHOCYTES % (MANUAL) 3 % (16-48); MONOCYTES % (MANUAL) 3 % (0-11.0); NEUTROPHILS % (MANUAL) 78 (42-76); PLATELET ESTIMATE ADEQUATE
[2016-08-08] MEDS: ALBUTEROL FS 2.5 MG/3 ML VIAL.NEB NEB SCH ×3 (07:44→23:13)
[2016-08-08] MEDS: LACTOBACILLUS RHAMNOSUS GG 1 EACH CAP.SPRINK PO SCH ×2 (08:15→17:34)
[2016-08-08] MEDS: ASPIRIN 325 MG TABLET NG SCH (08:15)
--- NOTE | 2016-08-08 09:30 | NUR ---
ICU/RN: DR BUCK BECKHAM; UPDATED. DISCUSSED PLAN FOR SIMV WEANING TRIAL TODAY. NOTIFIED OF LOW GRADE TEMPERATURE, INCREASE IN WBC COUNT, ABN LABS. PER MD, ASSESS PT DECISION-MAKING ABILITY S/P EXTUBATION AND DISCUSS POC WITH PT AND DPOA. NEW ORDERS NOTED AND CARRIED OUT.
[2016-08-08 09:50] LABS: BILIRUBIN,DIRECT 0.5 mg/dL (0.0-0.2); BILIRUBIN,TOTAL 0.9 mg/dL (0.2-1.0); TOTAL PROTEIN, SERUM 6.6 g/dL (6.4-8.2)
[2016-08-08] MEDS: ACETAMINOPHEN 650 MG/20.3 ML UDC NG PRN (10:23)
--- NOTE | 2016-08-08 10:30 | NUR ---
ICU/RN: PT OFF SEDATION FOR 30 MINS; PT AWAKE ORIENTED, ABLE TO FOLLOW COMMANDS WITH BOTH UPPER AND LOWER EXTREMITIES. ORIENTED PT TO UNIT AND POC, AND INSTRUCTED PT ON RELAXATION TECHNIQUES FOR WEANING. PT CONTINUES TO BE RESTLESS AND ANXIOUS WITH FACIAL GRIMACING, WITH INCREASING RR AND HR. ORAL TEMP 100.2; COOLING MEASURES IN PLACE. PLACED BACK ON SEDATION WITH DIPRIVAN AT 20MCG/MIN.
--- NOTE | 2016-08-08 14:10 | NUR ---
PT REC'D ON VIA ETT 7.5 25CM @ LIP. PT ON [facility] VENT ON SETTINGS CHARTED. GENERAL OPHTHALMOLOGIST CUFF PRESSURE NOTED. AMBU BAG BEDSIDE, ALARMS ARE SET AND AUDIBLE. SX'D THICK YELLOW SECRETIONS. BREATH SOUNDS ARE CLEAR AND EQUAL. VENT PLUGGED IN RED OUTLET. WILL CONTINUE TO MONITOR. Addendum: 08/08/16 at 1427 by DON SILVA RT Amended: Links added.
--- NOTE | 2016-08-08 15:23 | NUR ---
UNABLE TO WEAN DUE TO HIGH HR. ABG NOT TAKEN PER DR WHITE ORDER Addendum: 08/08/16 at 1524 by DON SILVA RT Amended: Links added.
[2016-08-08] MEDS: RENAL NOVASOURCE 1,000 ML BOTTLE GT PRN (17:33)
[2016-08-08] MEDS ORDERED: IV NS 0.9% 250 ML IV ONE (20:03)
[2016-08-08] MEDS: PANTOPRAZOLE 40 MG VIAL IV SCH (20:09)
[2016-08-09] VITALS (30 sets, daily range): BP systolic 79–168; BP diastolic 34–88
[2016-08-09] MEDS: SEVELAMER CARBONATE 0.8 GM POWD.PACK GT SCH ×3 (00:40→17:43)
[2016-08-09] MEDS: ACETAMINOPHEN 650 MG/20.3 ML UDC NG PRN ×2 (01:33→08:18)
--- NOTE | 2016-08-09 01:49 | NUR ---
MAINTENANCE SHOP WELDER DF PT WITH TEMP OF 101.5 ADMIN TYLENOL 650MG GT WITH COOLING MEASURES PROVIDED.
--- NOTE | 2016-08-09 01:59 | NUR ---
COUNTY DIRECTOR DF PT AGITATED,RESTLESS MOVING BUE/BLE SEDATED WITH DIPRIVAN INCREASED TO 35MCG FOR SEDATION.VSS.WILL MONITOR FOR EFFECT.
[2016-08-09] MEDS: PIPERACILLIN /TAZOBACTAM 2.25 G in IV D5W 50 ML IV SCH (04:37)
[2016-08-09 04:53] LABS: BASOPHILS % (AUTO) 0.1 % (0.0-2.0); EOSINOPHILS # (AUTO) 0.7 /CMM (0.0-0.7); EOSINOPHILS % (AUTO) 3.8 % (0.0-6.0); HEMATOCRIT 25 % (39-51); HEMOGLOBIN 8.5 g/dL (13.5-17.5); LYMPHOCYTES % (AUTO) 5.3 % (20.0-44.0); MEAN CORPUSCULAR HEMOGLOBIN 31 PG (26.0-33.0); MEAN CORPUSCULAR HGB CONC 34 g/dl (31.0-36.0); MEAN CORPUSCULAR VOLUME 91 fL (80-96); MONOCYTES # (AUTO) 0.5 /CMM (0.1-1.30); MONOCYTES % (AUTO) 2.9 % (2.0-12.0); NEUTROPHILS # (AUTO) 16.2 /CMM (1.8-8.9); NEUTROPHILS % (AUTO) 87.9 % (43.0-81.0); PLATELET COUNT (AUTO) 383 /CMM (150-450); RDW COEFFICIENT OF VARIATION 15.1 (11.5-15.0); RED BLOOD CELL COUNT(AUTO) 2.75 MIL/uL (4.5-6.0); WHITE BLOOD COUNT (AUTO) 18.4 K/uL (4.3-11.0)
[2016-08-09 05:10] LABS: CALCIUM, SERUM 8.3 mg/dL (8.5-10.1); CREATININE 5.6 mg/dL (0.6-1.3); MAGNESIUM 2.3 mg/dL (1.8-2.4); POTASSIUM 3.5 mmol/L (3.5-5.1)
--- NOTE | 2016-08-09 07:20 | NUR ---
ICU INITIAL NOTES RECEIVED PT IN BED, SEDATED, INTUBATED, ETT 7.5 25 @ LIP LINE, AC 20 TV 500 FIO2 40% PEEP 5, TOLERATING SETTING WELL, SATING WELL, NO S/S OF RESP.DISTRESS OR SOB NOTED AT THIS TIME, PT IS ON MONITOR SHOWING ST @ 110'S BPM, NO S/S OF DISCOMFORT AT THIS TIME, PT HAS BILATERAL SOFT WRIST RESTRAINTS, RELEASED AND SKIN CHECK COMPLETED, PT HAS F/C DRAINING JUAN URINE TO GRAVITY, PT HAS [place] PICC, WITH GOOD BLOOD RETURN, C/D/I/PATENT, FLUSHING WELL, INFUSING DIP @25MCG/MIN, TKO @ 5ML/HR, NO S/S OF INFECTION/ INFILTRATION NOTED AT THIS TIME, L HOLLY NGT RUNNING NOVASOURCE @ 30ML/HR, TOLERATING WELL, NO RESIDUALS NOTED AT THIS TIME, ALL SAFETY MEASURES IN PLACE AT ALL TIMES, CALL LIGHT WITHIN EASY REACH, WILL MONITOR PT CLOSELY FOR CHANGES Addendum: 08/09/16 at 1101 by RAMESH BROWN RN ADDED: PT IS OBSERVED WITH GENERAL RASH
[2016-08-09] MEDS: ALBUTEROL FS 2.5 MG/3 ML VIAL.NEB NEB SCH ×3 (07:35→23:30)
--- NOTE | 2016-08-09 08:00 | NUR ---
TEMPERATURE NOTES PT HAS TEMPERATURE OF 102.0, TYLENOL GIVEN, COOLING MEASURES IN PLACE.
[2016-08-09] MEDS ORDERED: IV SET PRIMARY PUMP SET 1 EA INFUS.SET MC ONE (08:02)
[2016-08-09] MEDS: ASPIRIN 325 MG TABLET NG SCH (08:19)
[2016-08-09] MEDS: LACTOBACILLUS RHAMNOSUS GG 1 EACH CAP.SPRINK PO SCH ×2 (08:19→17:43)
--- NOTE | 2016-08-09 08:20 | NUR ---
SEDATION VACATION DIPRIVAN TURNED OFF, PT ABLE TO FOLLOW COMMANDS, MOVES EXTREMITIES, UNABLE TO MOVE RIGHT FOOT, PT BECAME AGITATED, INCREASED HR AND RESPIRATIONS, DIPRIVAN TURNED BACK ON TO 40MCG/MIN.
[2016-08-09] MEDS: PROPOFOL 100 ML IV PRN (08:30)
[2016-08-09] MEDS ORDERED: IMIPENEM/CILASTATIN 500 MG in IV NS 0.9% 100 ML IV SCH (08:30)
[2016-08-09] MEDS ORDERED: DC PROPOFOL WHEN EXTUBATED XX PRN ×2 (09:00→12:14)
--- NOTE | 2016-08-09 09:00 | NUR ---
PHARMACY NOTE SPOKE WITH KARINA REGARDING RASH, DISCUSSED RATHER ITS VANCO OR MD CORBIN ORDERED HOSEA WILL MONITOR PT CLOSELY FOR CHANGES
[2016-08-09] MEDS ORDERED: SECONDARY IV SET 1 EA INFUS.SET MC ONE ×2 (09:01→10:31)
[2016-08-09] MEDS: MEROPENEM 500 MG in IV NS 0.9% 50 ML IV SCH ×2 (09:13→20:51)
[2016-08-09 09:43] LABS: ABG BASE EXCESS -3.3 mmol/L; ABG OXYGEN SATURATION 96.2 % (92.0-98.5); ABG PCO2 30.2 mmHg (35.0-45.0); ABG PH 7.441 (7.350-7.450); ABG PO2 99.6 mmHg (75.0-100.0); ABG TOTAL HEMOGLOBIN 9.5 G/dL (13.5-18.0); AaDO2 150.9 mmHg; MetHb 1.4 % (0.0-1.5); O2Hb 94.9 % (94.0-97.0); PEEP,BG 5 cm H2O; SITE, ABG Right Radial; VENT MODE, BG A/C; VT, ABG 500 mL
--- NOTE | 2016-08-09 10:00 | NUR ---
PT PLACED ON WEANING TRAIL PER MD. FLORES WELL AT THIS TIME ALARMS ADJUSTED RN AWARE.
--- NOTE | 2016-08-09 10:00 | NUR ---
PHARMACY NOTES PT IS NOTED WITH RASH, NO NEW WORSENING RASH, MD AWARE AND PHARMACY
[2016-08-09] MEDS ORDERED: VANCOMYCIN 0.75 GM in IV D5W 250 ML IV SCH (11:00)
[2016-08-09 11:14] LABS: ABG BASE EXCESS -3.9 mmol/L; ABG OXYGEN SATURATION 96.2 % (92.0-98.5); ABG PCO2 31.6 mmHg (35.0-45.0); ABG PH 7.419 (7.350-7.450); ABG PO2 98.1 mmHg (75.0-100.0); ABG TOTAL HEMOGLOBIN 8.8 G/dL (13.5-18.0); AaDO2 150.8 mmHg; COHb 0.1 % (0.5-1.5); O2Hb 95.1 % (94.0-97.0); PEEP,BG 5 cm H2O; SITE, ABG Right Radial; VENT MODE, BG SIMV 4 PSV 12
--- NOTE | 2016-08-09 11:47 | NUR ---
PICC LINE REMOVAL NOTES PICC LINE REMOVED, CATHETER TIP INTACT, PT TOLERATED WELL
--- NOTE | 2016-08-09 12:20 | NUR ---
PT EXTUBATED. SANDRA. WELL. B/S EQUAL. ZERO STRIDOR NOTED. ON 2LPM 02
--- NOTE | 2016-08-09 12:22 | NUR ---
RN EXTUBATION NOTES PT WAS EXTUBATED PER DR. WHITE ORDER, DIP WAS STOPPED, PT WAS PLACED ON 2L NC, ORAL CARE WAS PROVIDED, PT STATED "HELLO AND I WANT WATER", O2 SATURATION 97%, NO RESP. DISTRESS OR SOB NOTED AT THIS TIME, WILL MONITOR PT CLOSELY
[2016-08-09] MEDS: PANTOPRAZOLE 40 MG VIAL IV SCH (18:54)
--- NOTE | 2016-08-09 20:09 | NUR ---
DARK ROOM ATTENDANT DF RECEIVED PT TO ROOM#253 PT A/O TO PERSON,PLACE,SITUATION.FOLLOWING COMMANDS.MILDLY AGITATED PT REQUESTING SEDATIVE MEDICATION TO ASSIST WITH SLEEP. I EXPLAINED TO PT THAT HE WAS EXTUBATED TODAY AND WAS INTUBATED TWICE ON THIS ADMISSION AND SEDATIVES WILL DECREASE HIS IMPAIRED RESPIRATORY DRIVE. PT VERBALIZED UNDERSTANDING. PT WITH MILD LETHARGY VSS O2 SAT OF 98% WITH RESPIRATORY RATE OF 22.NAD NOTED.
[2016-08-10] VITALS (24 sets, daily range): BP systolic 101–150; BP diastolic 56–87
[2016-08-10] MEDS: SEVELAMER CARBONATE 0.8 GM POWD.PACK GT SCH ×3 (01:30→16:55)
[2016-08-10] MEDS ORDERED: IV NS 0.9% 250 ML IV ONE (02:24)
[2016-08-10 04:55] LABS: BASOPHILS % (AUTO) 0.1 % (0.0-2.0); EOSINOPHILS # (AUTO) 0.6 /CMM (0.0-0.7); EOSINOPHILS % (AUTO) 3.2 % (0.0-6.0); HEMATOCRIT 26 % (39-51); HEMOGLOBIN 8.9 g/dL (13.5-17.5); LYMPHOCYTES # (AUTO) 1.3 /CMM (0.8-4.8); LYMPHOCYTES % (AUTO) 7.3 % (20.0-44.0); MEAN CORPUSCULAR HEMOGLOBIN 31 PG (26.0-33.0); MEAN CORPUSCULAR HGB CONC 34 g/dl (31.0-36.0); MEAN CORPUSCULAR VOLUME 90 fL (80-96); MONOCYTES # (AUTO) 0.9 /CMM (0.1-1.30); MONOCYTES % (AUTO) 4.9 % (2.0-12.0); NEUTROPHILS # (AUTO) 15.2 /CMM (1.8-8.9); NEUTROPHILS % (AUTO) 84.5 % (43.0-81.0); PLATELET COUNT (AUTO) 365 /CMM (150-450); RDW COEFFICIENT OF VARIATION 15.2 (11.5-15.0); RED BLOOD CELL COUNT(AUTO) 2.89 MIL/uL (4.5-6.0)
[2016-08-10 05:00] LABS: CALCIUM, SERUM 8.7 mg/dL (8.5-10.1); CREATININE 4.9 mg/dL (0.6-1.3); MAGNESIUM 2.5 mg/dL (1.8-2.4); PHOSPHORUS 6.7 mg/dL (2.5-4.9); POTASSIUM 3.5 mmol/L (3.5-5.1)
[2016-08-10] MEDS: ALBUTEROL FS 2.5 MG/3 ML VIAL.NEB NEB SCH ×3 (07:31→23:30)
[2016-08-10] MEDS: IPRATROPIUM NEB FS 0.5 MG/2.5 ML AMPUL.NEB NEB PRN (07:31)
--- NOTE | 2016-08-10 08:00 | NUR ---
APPLICATIONS ARCHITECT; ASSESSMENT RECEIVED PT AWAKE AND ORIENTD X3. PT DENIES ANY PAIN AT THIS TIME. PT IS S/P EXTUBATION ON 08/09/16. PT IS ABLE TO VERBALIZE NEEDS. REINFORCING METAL WORKER SHOWING SINUS TACHY. PT AFEBRILE. SCHAFER CATH INTACT DRAINING TO GRAVITY CLEAR YELLOW URINE. NG TUBE INTACT TO LEFT NARE, POSITIVE FOR AUSCULTATION AND ASPIRATION. WILL DO BEDSIDE SWALLOW EVAL WITH MEDICATIONS. ASPIRATION PRECAUTIONS APPLIED. WILL CONTINUE WITH PLAN OF CARE.
[2016-08-10] MEDS: LACTOBACILLUS RHAMNOSUS GG 1 EACH CAP.SPRINK PO SCH ×2 (08:31→16:55)
[2016-08-10] MEDS: MEROPENEM 500 MG in IV NS 0.9% 50 ML IV SCH ×2 (08:31→20:38)
[2016-08-10] MEDS: ASPIRIN 325 MG TABLET NG SCH (08:31)
[2016-08-10 09:00] LABS: ABG OXYGEN SATURATION 90.7 % (92.0-98.5); ABG PCO2 29.2 mmHg (35.0-45.0); ABG PH 7.439 (7.350-7.450); ABG TOTAL HEMOGLOBIN 9.6 G/dL (13.5-18.0); O2Hb 88.9 % (94.0-97.0); SITE, ABG Left Radial; VENT MODE, BG N/C
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
[2016-08-10] MEDS: FLUCONAZOLE (100 MG) 100 MG TABLET PO SCH (10:55)
--- NOTE | 2016-08-10 20:00 | NUR ---
received pt from day shift, alert, follows commands, ST, on 4L 02, sat well, lungs congested/diminished, no edema, f/c good output, tolerates diet, v/s stable, no pain, pt turned and repositioned.
[2016-08-10] MEDS: PANTOPRAZOLE 40 MG VIAL IV SCH (20:38)
[2016-08-11] VITALS (14 sets, daily range): BP systolic 104–135; BP diastolic 56–79
--- NOTE | 2016-08-11 00:14 | NUR ---
pt is resting in the bed, v/s stable, no pain, pt turned and repositioned q2hrs.
[2016-08-11] MEDS ORDERED: IV NS 0.9% 250 ML IV ONE (00:46)
[2016-08-11] MEDS ORDERED: CARVEDILOL 3.125 MG TABLET ONE (01:32)
[2016-08-11] MEDS: SEVELAMER CARBONATE 0.8 GM POWD.PACK GT SCH ×2 (01:38→08:38)
[2016-08-11] MEDS: CARVEDILOL 3.125 MG TABLET PO SCH ×3 (01:39→21:04)
--- NOTE | 2016-08-11 04:32 | NUR ---
pt is resting in the bed, alert, follows commands, on 4L 02 sat well, v/s stable, no pain, pt cleaned, changed and repositioned q2hrs.
[2016-08-11 05:10] LABS: BASOPHILS % (AUTO) 0.2 % (0.0-2.0); EOSINOPHILS # (AUTO) 0.4 /CMM (0.0-0.7); EOSINOPHILS % (AUTO) 2.5 % (0.0-6.0); HEMATOCRIT 26 % (39-51); HEMOGLOBIN 8.7 g/dL (13.5-17.5); LYMPHOCYTES # (AUTO) 1.5 /CMM (0.8-4.8); LYMPHOCYTES % (AUTO) 8.6 % (20.0-44.0); MEAN CORPUSCULAR HEMOGLOBIN 31 PG (26.0-33.0); MEAN CORPUSCULAR HGB CONC 34 g/dl (31.0-36.0); MEAN CORPUSCULAR VOLUME 90 fL (80-96); MONOCYTES % (AUTO) 5.8 % (2.0-12.0); NEUTROPHILS # (AUTO) 14.3 /CMM (1.8-8.9); NEUTROPHILS % (AUTO) 82.9 % (43.0-81.0); PLATELET COUNT (AUTO) 377 /CMM (150-450); RDW COEFFICIENT OF VARIATION 14.8 (11.5-15.0); RED BLOOD CELL COUNT(AUTO) 2.83 MIL/uL (4.5-6.0); WHITE BLOOD COUNT (AUTO) 17.3 K/uL (4.3-11.0)
[2016-08-11 05:30] LABS: CALCIUM, SERUM 8.5 mg/dL (8.5-10.1); CREATININE 4.1 mg/dL (0.6-1.3); MAGNESIUM 2.4 mg/dL (1.8-2.4); POTASSIUM 3.6 mmol/L (3.5-5.1)
[2016-08-11 06:34] LABS: NEUTROPHILS % (MANUAL) 86 (42-76)
[2016-08-11 06:35] LABS: EOSINOPHILS % (MANUAL) 4 % (0-4); LYMPHOCYTES % (MANUAL) 8 % (16-48); MONOCYTES % (MANUAL) 2 % (0-11.0); PLATELET ESTIMATE ADEQUATE
--- NOTE | 2016-08-11 07:15 | NUR ---
AIRCRAFT INSTRUMENT REPAIRER NOTES RECEIVED PATIENT AOX3 , NOT IN ACUTE DISTRESS , DENIES SOB AND DISCOMFORT AT THIS TIME , SPO2 OF 98% VIA 4LPM NC , ST 103 ON BEDSIDE MONITOR , FC DRAINING VIA GRAVITY WITH CLEAR YELLOW URINE , ON KCI MATTRESS , IV OF RENETTA MIDLINE PATENT AND INTACT WITH NS @ TKO , L WRIST # 20 PATENT AND INTACT SL , ALL NEEDS ATTENDED , BED ON LOW AND LOCKED POSITION , SIDE RAILS X2 , CALL LIGHT WITHIN REACH , WILL CONTINUE .
[2016-08-11] MEDS: ALBUTEROL FS 2.5 MG/3 ML VIAL.NEB NEB SCH ×3 (07:35→23:23)
[2016-08-11] MEDS: FLUCONAZOLE (100 MG) 100 MG TABLET PO SCH (08:37)
[2016-08-11] MEDS: ASPIRIN 325 MG TABLET NG SCH (08:37)
[2016-08-11] MEDS: MEROPENEM 500 MG in IV NS 0.9% 50 ML IV SCH ×2 (08:38→21:02)
[2016-08-11] MEDS: LACTOBACILLUS RHAMNOSUS GG 1 EACH CAP.SPRINK PO SCH ×2 (08:38→18:50)
--- NOTE | 2016-08-11 09:00 | NUR ---
HATCH TENDER NOTES SEEN AND EVALUATED BY DR JANE . DISCUSSED LABS , AFEBRILE WITH STABLE V/S , TOLERATING 4LPM NC SPO2 OF 98% , PER MD STABLE TO TRANSFER TO TELE FLOOR , ORDERS CARRIED OUT , WILL CONTINUE TO MONITOR
--- NOTE | 2016-08-11 09:45 | NUR ---
CORE LAYING MACHINE OPERATOR NOTES TRANSFERRED TO ROOM 327 BED 1 VIA ACLS PROTOCOL , STABLE AT THIS TIME , NO CHANGE IN CONDITION NOTED , V/S STABLE , BELONGING LIST CHECK , REPORT GIVEN TO TEJINDER FOR CONTINUITY OF CARE
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
--- NOTE | 2016-08-11 13:00 | NUR ---
MS/HAIR CLIPPER POWER NEED TO BE CRUSHED PT. REQUESTED TO HAVE MEDICATIONS CRUSHED. MEDICATIONS WERE CRUSHED BEFORE GIVEN.
--- NOTE | 2016-08-11 13:30 | NUR ---
MS/RN COREG WAS NOT ADMINISTERED DUE TO DELAYED TIME.
[2016-08-11] MEDS ORDERED: VANCOMYCIN 0.75 GM in IV D5W 250 ML IV SCH (15:00)
[2016-08-11] MEDS ORDERED: SECONDARY IV SET 1 EA INFUS.SET MC ONE (15:12)
[2016-08-11] MEDS: IPRATROPIUM NEB FS 0.5 MG/2.5 ML AMPUL.NEB NEB PRN (15:18)
[2016-08-11] MEDS: SEVELAMER CARBONATE 800 MG TABLET PO SCH ×2 (15:35→18:50)
--- NOTE | 2016-08-11 19:00 | NUR ---
MS/RN CLOSING NOTE PT. LYING IN BED A&OX4, NO SOB, ON NASAL CANULA AT 3L/MIN. NO C/O PAIN. BED IN LOW POSITION, 2 SIDE RAILS UP, AND CALL LIGHT WITHIN REACH. PT. IS ON 2GM SODIUM MECHANICAL SOFT DIET. IV FLUIDS INFUSING TO KEEP VEIN OPEN. ENDORSED REPORT TO POST TENSIONING IRONWORKER HELPER NURSE. PT. HAS A GOSIA KOEHLER.
--- NOTE | 2016-08-11 20:11 | NUR ---
TELE/RN NOTES PATIENT IN BED, AWAKEX3. ON ISOLATION ABLE TO VERBALIZE NEEDS. ASSIST WITH NEEDS AND WILL CONTINUE CARE. SAFETY MEASURES PROVIDED.
[2016-08-11] MEDS: PANTOPRAZOLE 40 MG VIAL IV SCH (21:02)
[2016-08-12] VITALS (7 sets, daily range): BP systolic 107–130; BP diastolic 56–68
--- NOTE | 2016-08-12 06:30 | NUR ---
TELE/RN CLOSING NOTES PATIENTIN BED, AWAKE W/ NO S/S OF SOB OR DISTRESS. ABLE TO VERBALIZE NEEDS AT ALL TIMES. REPOSTION AND PROVIDED NEEDS FOR COMFORT. TELE READING AT SR 102. SCHAFER WITH OUTPUT 350ML. SKIN WITH MOUTH SORE AND DISCOLORATION ON SIDE OF LATERAL ABDOMEN CIRCULAR SHAPE.NO S/S SKIN ITCH. CONTACT ISOLATION PROVIDED..REQUIRE 2 PERSON ASSIST IN REPOSITION.WILL ENDORSE TO AM RN FOR CONTINUITY OF CARE.
[2016-08-12] MEDS: ALBUTEROL FS 2.5 MG/3 ML VIAL.NEB NEB SCH ×3 (07:35→23:21)
[2016-08-12 07:41] LABS: BASOPHILS % (AUTO) 0.1 % (0.0-2.0); EOSINOPHILS # (AUTO) 0.9 /CMM (0.0-0.7); EOSINOPHILS % (AUTO) 6.7 % (0.0-6.0); HEMATOCRIT 24 % (39-51); HEMOGLOBIN 8.3 g/dL (13.5-17.5); LYMPHOCYTES # (AUTO) 1.9 /CMM (0.8-4.8); LYMPHOCYTES % (AUTO) 13.8 % (20.0-44.0); MEAN CORPUSCULAR HEMOGLOBIN 31 PG (26.0-33.0); MEAN CORPUSCULAR HGB CONC 34 g/dl (31.0-36.0); MEAN CORPUSCULAR VOLUME 90 fL (80-96); MONOCYTES % (AUTO) 7.2 % (2.0-12.0); NEUTROPHILS # (AUTO) 10.1 /CMM (1.8-8.9); NEUTROPHILS % (AUTO) 72.2 % (43.0-81.0); PLATELET COUNT (AUTO) 409 /CMM (150-450); RDW COEFFICIENT OF VARIATION 14.4 (11.5-15.0)
[2016-08-12 07:56] LABS: CALCIUM, SERUM 8.3 mg/dL (8.5-10.1); CREATININE 3.2 mg/dL (0.6-1.3); MAGNESIUM 2.1 mg/dL (1.8-2.4); PHOSPHORUS 4.4 mg/dL (2.5-4.9); POTASSIUM 3.3 mmol/L (3.5-5.1)
[2016-08-12] MEDS: LACTOBACILLUS RHAMNOSUS GG 1 EACH CAP.SPRINK PO SCH ×2 (08:24→16:06)
[2016-08-12] MEDS: ASPIRIN 325 MG TABLET NG SCH (08:24)
[2016-08-12] MEDS: SEVELAMER CARBONATE 800 MG TABLET PO SCH ×2 (08:24→12:06)
[2016-08-12] MEDS: MEROPENEM 500 MG in IV NS 0.9% 50 ML IV SCH ×2 (08:25→21:08)
[2016-08-12] MEDS: FLUCONAZOLE (100 MG) 100 MG TABLET PO SCH (08:25)
[2016-08-12] MEDS: CARVEDILOL 3.125 MG TABLET PO SCH (08:25)
[2016-08-12] MEDS ORDERED: POTASSIUM CHLORIDE 20 MEQ TAB.PRT.SR PO ONE (10:00)
--- NOTE | 2016-08-12 18:38 | NUR ---
MS/RN: notes patient reassessed per Medical/ Surgical protocol, no acute change noted from initial shift assessment, please see completed data in flowsheets. adequate oxygenation on 2 liter nasal cannula, saturation >95%, denies chest pain, no shortness of breath noted. NSR on monitor, tele d/c per leave coordinator. vss, afebrile. poor appetite, no nausea, vomiting noted, adequate urine output, no BM noted during the shift. patient turned and repositioned q2h and prn. will continue to monitor closely and intervene as appropriate.
[2016-08-12] MEDS: PANTOPRAZOLE 40 MG VIAL IV SCH (19:44)
--- NOTE | 2016-08-12 20:06 | NUR ---
MS/RN OPENING NOTES RECEIVED PATIENT IN BED, AWAKE AND ABLE TO VERBALIZE NEEDS. WILL CONTINUE TO MONITOR AND PROVIDE CARE. RECEIVED ENDORSEMENT FROM AM RN FOR ZENY.
[2016-08-12] MEDS: CARVEDILOL 12.5 MG TABLET PO SCH (21:09)
[2016-08-12] MEDS ORDERED: ATORVASTATIN 10 MG TABLET PO SCH (22:00)
--- NOTE | 2016-08-13 06:52 | NUR ---
MS/RN CLOSING NOTES PATIENT AWAKE, ALERT AND ABLE TO VERBALIZE NEEDS. HOB ELEVATED AND INSTRUCTED REGARDING ASPIRATION PRECAUTION AND USE OF MEDS BY MOUTH, STATED CAN SWALLOW FOOD BUT STILL PREFER MEDS CRUSHED W/ APPLE SAUCE PREFERENCE .EDUCATED ABOUT THE USE OF MEDS AND WHAT MEDS NOT TO BE CRUSHED.WILL ENDORSE TO AM RN FOR ZENY.
--- NOTE | 2016-08-13 07:30 | NUR ---
RN MS OPENING NOTES RECEIVED PATIENT IN BED, AWAKE, HEAD OF BED ELEVATED, NO SOB OR DISTRESS NOTED, A/O X4, VERBALLY RESPONSIVE AND ABLE TO MAKE NEEDS KNOWN. IV INTACT AND PATENT. KEPT PATIENT CLEAN AND COMFORTABLE IN BED, CALL LIGHT WITHIN PATIENT REACH. WILL CONTINUE TO MONITOR ACCORDINGLY.
[2016-08-13 07:54] LABS: BASOPHILS # (AUTO) 0.1 /CMM (0.0-0.2); BASOPHILS % (AUTO) 1.1 % (0.0-2.0); EOSINOPHILS # (AUTO) 1.1 /CMM (0.0-0.7); EOSINOPHILS % (AUTO) 8.7 % (0.0-6.0); HEMATOCRIT 26 % (39-51); HEMOGLOBIN 8.9 g/dL (13.5-17.5); LYMPHOCYTES # (AUTO) 2.1 /CMM (0.8-4.8); MEAN CORPUSCULAR HEMOGLOBIN 31 PG (26.0-33.0); MEAN CORPUSCULAR HGB CONC 34 g/dl (31.0-36.0); MEAN CORPUSCULAR VOLUME 90 fL (80-96); MONOCYTES # (AUTO) 1.1 /CMM (0.1-1.30); MONOCYTES % (AUTO) 8.7 % (2.0-12.0); NEUTROPHILS # (AUTO) 8.1 /CMM (1.8-8.9); NEUTROPHILS % (AUTO) 64.5 % (43.0-81.0); PLATELET COUNT (AUTO) 431 /CMM (150-450); RDW COEFFICIENT OF VARIATION 14.5 (11.5-15.0); WHITE BLOOD COUNT (AUTO) 12.6 K/uL (4.3-11.0)
[2016-08-13] MEDS: ALBUTEROL FS 2.5 MG/3 ML VIAL.NEB NEB SCH (07:57)
[2016-08-13] MEDS: IPRATROPIUM NEB FS 0.5 MG/2.5 ML AMPUL.NEB NEB PRN (07:57)
[2016-08-13 08:00] VITALS: BP 122/68
[2016-08-13 08:11] LABS: CALCIUM, SERUM 8.5 mg/dL (8.5-10.1); CREATININE 2.7 mg/dL (0.6-1.3); MAGNESIUM 2.1 mg/dL (1.8-2.4); PHOSPHORUS 4.1 mg/dL (2.5-4.9)
[2016-08-13] MEDS ORDERED: LEVO500T15 PO (08:53)
[2016-08-13] MEDS ORDERED: CARV12.52 PO (08:53)
[2016-08-13] MEDS ORDERED: ATOR10TA PO (08:53)
[2016-08-13] MEDS ORDERED: Aspirin NG (08:53)
[2016-08-13] MEDS ORDERED: Fluconazole PO (09:27)
[2016-08-13] MEDS: ASPIRIN 325 MG TABLET NG SCH (09:33)
[2016-08-13] MEDS: FLUCONAZOLE (100 MG) 100 MG TABLET PO SCH (09:33)
[2016-08-13] MEDS: LACTOBACILLUS RHAMNOSUS GG 1 EACH CAP.SPRINK PO SCH (09:33)
[2016-08-13 09:34] VITALS: BP 122/68
[2016-08-13] MEDS: CARVEDILOL 12.5 MG TABLET PO SCH (09:34)
[2016-08-13] MEDS: MEROPENEM 500 MG in IV NS 0.9% 50 ML IV SCH (09:35)
--- NOTE | 2016-08-13 17:47 | NUR ---
RN NOTES PATIENT IN BED, AWAKE, HEAD OF BED ELEVATED, NO SOB OR DISTRESS NOTED, A/O X4, VERBALLY RESPONSIVE AND ABLE TO MAKE NEEDS KNOWN. IV AND ID BAND REMOVED WITH NO ASE NOTED.. KEPT PATIENT CLEAN AND COMFORTABLE IN BED, PATIENT WITH ORDERS FOR DISCHARGE, F/C IN PLACE, INTACT AND DRAINING YELLOW URINE, PER MD TO LEAVE IN PLACE FOR DISCHARGE, PATIENT REFUSES PICTURES OF LIP TO BE TAKEN NURSING EDUCATION REINFORCED X3 REPORT GIVEN TO SNF RN FOR CONTINUITY OF CARE
== END 2016-08-13 15:00 | DRG 870 ==
LOC: ER 15:10 → ICU 16:46 → TELE 08-11 10:04 → MED 08-12 09:21
PROVIDERS: ADMIT Internal Medicine; ATTEND Internal Medicine
PROC: 5A12012 Performance of Cardiac Output, Single, Manual (ICD-10-PCS; principal; 2016-07-30)
PROC: 5A1945Z Respiratory Ventilation, 24-96 Consecutive Hours (ICD-10-PCS; 2016-07-30)
PROC: 0BH18EZ Insertion of Endotracheal Airway into Trachea, Via Natural or Artificial Opening Endoscopic (ICD-10-PCS; 2016-07-30)
PROC: 02HV33Z Insertion of Infusion Device into Superior Vena Cava, Percutaneous Approach (ICD-10-PCS; 2016-07-30)
PROC: B548ZZA Ultrasonography of Superior Vena Cava, Guidance (ICD-10-PCS; 2016-07-30)
PROC: 5A1955Z Respiratory Ventilation, Greater than 96 Consecutive Hours (ICD-10-PCS; 2016-08-04)
PROC: 0BH18EZ Insertion of Endotracheal Airway into Trachea, Via Natural or Artificial Opening Endoscopic (ICD-10-PCS; 2016-08-04)
PROC: 05HC33Z Insertion of Infusion Device into Left Basilic Vein, Percutaneous Approach (ICD-10-PCS; 2016-08-09)
PROC: B54NZZA Ultrasonography of Left Upper Extremity Veins, Guidance (ICD-10-PCS; 2016-08-09)
DX: A41.9 Sepsis, unspecified organism (principal); I21.4 Non-ST elevation (NSTEMI) myocardial infarction; J18.9 Pneumonia, unspecified organism; J96.01 Acute respiratory failure with hypoxia; N17.0 Acute kidney failure with tubular necrosis; R65.21 Severe sepsis with septic shock; I46.9 Cardiac arrest, cause unspecified; I50.21 Acute systolic (congestive) heart failure; G93.40 Encephalopathy, unspecified; K72.00 Acute and subacute hepatic failure without coma; J44.0 Chronic obstructive pulmonary disease with (acute) lower respiratory infection; I13.0 Hypertensive heart and chronic kidney disease with heart failure and stage 1 through stage 4 chronic kidney disease, or unspecified chronic kidney disease; E87.2 Acidosis; I50.1 Left ventricular failure, unspecified; N18.9 Chronic kidney disease, unspecified; I73.9 Peripheral vascular disease, unspecified; I25.5 Ischemic cardiomyopathy; I25.10 Atherosclerotic heart disease of native coronary artery without angina pectoris; E83.51 Hypocalcemia; E83.39 Other disorders of phosphorus metabolism; D64.9 Anemia, unspecified; E88.09 Other disorders of plasma-protein metabolism, not elsewhere classified; R74.0 Nonspecific elevation of levels of transaminase and lactic acid dehydrogenase [LDH]; I77.1 Stricture of artery; T36.0X5A Adverse effect of penicillins, initial encounter; Y92.230 Patient room in hospital as the place of occurrence of the external cause; R21 Rash and other nonspecific skin eruption; Z87.891 Personal history of nicotine dependence; E87.6 Hypokalemia
CPT/HCPCS: 31720; 36415; 36569; 36600; 71010-TC; 76705-TC; 76770-TC; 80048-TC; 80053-TC; 80061-TC; 80076-TC; 80202-TC; 82040-TC; 82803-TC; 83605-TC; 83735-TC; 83880; 84100-TC; 84484-TC; 85025-TC; 85730-TC; 87040-TC; 87070-TC; 87081-TC; 87086-TC; 87400; 89055; 92611-TC; 93307-TC; 93925-TC; 94002-TC; 94003-TC; 94640-TC; 94760-TC; 94799-TC; 97001-TC; 97110-TC; 97112-TC; 97530-TC; 99082-TC; A4216; A4606; C1751; C9113; J0171; J0330; J0456; J0610; J0696; J0743; J1644; J1940; J1956; J2060; J2185; J2250; J2370; J2543; J3370; J3480; J3490; J7030; J7040; J7050; J7060; P9047; Z7610